=== PATIENT | female | born 1980 | race Caucasian/White ===

== ENCOUNTER 2019-11-04 07:29 | Emergency (ER) | payer BC, MEDICAID ==
[~2019-11-04] VITALS: Ht 160 cm; Wt 77.9 kg
--- NOTE | 2019-11-04 07:33 | NUR ---
PT IN LOBBY AND INFORMED ADMITTING STAFF THAT SHE NEEDS TO USE BATHROOM, PT GIVEN URINE CUP TO PROVIDE SAMPLE, WILL TRIAGE PT WHEN SHE IS DONE.
--- NOTE | 2019-11-04 08:06 | NUR ---
PT'S BELONGINGS DOCUMENTED AND SECURED IN [facility]ANCE [facility]. BELONGINGS CONSIST OF: BLACK SHOES, BLACK JACKET, SPORTS BRA, T-SHIRT, PANTS, BLACK HAT, AND UNDERWEAR. PT'S CELLPHONE AND WALLET WERE TAKEN HOME BY PT'S MOTHER.
[2019-11-04] MEDS ORDERED: ARIP2TAB37 PO (08:12)
[2019-11-04] MEDS ORDERED: ESCI10TA PO (08:12)
[2019-11-04] MEDS ORDERED: normal saline 1000ML IV soln IVB ONE (08:30)
[2019-11-04 08:48] LABS: CLARITY,URINE SLIGHTLY CLOUDY (Clear); COLOR,URINE YELLOW (Yellow); GLUCOSE, URINE NEGATIVE (Neg); KETONES,URINE TRACE mg/dl (Neg); LEUKOCYTE ESTERASE ,URINE NEGATIVE (Neg); NITRITES, URINE NEGATIVE (Neg); OCCULT BLOOD,URINE LARGE (Neg); PROTEIN,URINE 100 mg/dl (Neg); UROBILINOGEN,URINE 0.2 E.U/dL (0.2-1.0)
[2019-11-04 08:50] LABS: URINE HCG NEGATIVE (NEG)
[2019-11-04] MEDS ORDERED: magnesium oxide 400mg tablet PO ONE (08:50)
[2019-11-04] MEDS ORDERED: folic acid 1mg tablet PO ONE (08:50)
[2019-11-04] MEDS ORDERED: thiamine 100mg tablet PO ONE (08:50)
[2019-11-04 08:57] LABS: UA COLLECTION TYPE CLN CATCH MIDSTREAM
[2019-11-04 08:58] LABS: MUCUS STRANDS MODERATE /LPF (Neg); SQUAMOUS EPITHELIAL CELL,UR MANY /LPF (FEW)
[2019-11-04 09:00] LABS: BACTERIA,URINE 2+ /HPF (Neg); RBC,URINE 50-100 /HPF (0-2)
[2019-11-04 09:19] LABS: BASOPHILS # (AUTO) 0.1 X10'3 (0-0.2); BASOPHILS % (AUTO) 1.6 % (0-1); EOSINOPHILS % (AUTO) 0.9 % (0-6); HEMOGLOBIN 14.7 g/dl (12.0-16.0); LYMPHOCYTES # (AUTO) 1.5 X10'3 (1.1-4.8); MEAN CORPUSCULAR HEMOGLOBIN 33.8 PG (27.0-31.0); MEAN CORPUSCULAR HGB CONC 34.3 g/dL (33.0-36.5); MEAN CORPUSCULAR VOLUME 98.7 FL (78-98); MEAN PLATELET VOLUME 6.9 FL (7.4-10.4); MONOCYTES # (AUTO) 0.6 X10'3 (0-0.9); MONOCYTES % (AUTO) 14.5 % (2-12); NEUTROPHILS # (AUTO) 1.9 X10'3 (1.8-7.7); PLATELET COUNT 177 X10'3 (140-440); RED BLOOD COUNT 4.36 X10'6 (4.20-5.60); RED CELL DISTRIBUTION WIDTH 14.1 % (11.5-14.5)
[2019-11-04 09:35] LABS: ALANINE AMINOTRANSFERASE 36 U/L (12-78); ALBUMIN 3.8 G/DL (3.4-5.0); ALBUMIN/GLOBULIN RATIO 0.9 (1.1-1.5); ALKALINE PHOSPHATASE 75 IU/L (46-116); ANION GAP 13 (8-16); BILIRUBIN,TOTAL 0.4 MG/DL (0.1-1.0); BLOOD UREA NITROGEN 10 MG/DL (7-18); BUN/CREATININE RATIO 13.7 (6.6-38.0); CALCIUM 8.4 MG/DL (8.5-10.1); CHLORIDE 104 MMOL/L (99-107); CREATININE 0.73 MG/DL (0.40-0.90); GLUCOSE 101 MG/DL (70-104); SODIUM 142 MMOL/L (135-145); TOTAL CARBON DIOXIDE 25.5 MMOL/L (24-32); eGFR 90 ML/MIN
[2019-11-04 09:40] LABS: POTASSIUM 4.4 MMOL/L (3.5-5.1)
[2019-11-04 09:43] LABS: ETHANOL 0.244 GM/DL (0.0-0.010); LIPASE 253 U/L (73-393); MAGNESIUM 2.2 MG/DL (1.5-2.4)
[2019-11-04 09:44] LABS: ASPARTATE AMINO TRANSFERASE 91 U/L (10-37)
--- NOTE | 2019-11-04 10:07 | NUR ---
Patient's mother: Maria T, cell phone number [phone]
[2019-11-04] MEDS ORDERED: LORazepam 2 mg/ml vial IV ONE (10:15)
[2019-11-04 11:04] LABS: URINE AMPHETAMINE SCREEN NEGATIVE (Neg); URINE BARBITUATE SCREEN NEGATIVE (Neg); URINE BENZODIAZEPINES SCREEN NEGATIVE (Neg); URINE CANNABINOID SCREEN NEGATIVE (Neg); URINE COCAINE SCREEN NEGATIVE (Neg); URINE METHADONE SCREEN NEGATIVE (Neg); URINE OPIATE SCREEN NEGATIVE (Neg); URINE PHENCYCLIDINE SCREEN NEGATIVE (Neg)
[2019-11-04] MEDS ORDERED: chlordiazePOXIDE 25mg capsule PO ONE ×2 (11:20→18:15)
--- NOTE | 2019-11-04 12:00 | NUR ---
PACKET FAXED TO [facility]
--- NOTE | 2019-11-04 12:15 | NUR ---
Pt resting with eyes closed after Ativan given, states she feels tired; has been having insomnia. Less anxiety
[2019-11-04] MEDS: chlordiazePOXIDE 25mg capsule PO SCH ×3 (13:00→22:41)
[2019-11-04] MEDS: ESCITALOPRAM OXALATE 5 MG TABLET PO SCH (17:16)
[2019-11-04] MEDS: cloNIDine 0.1 MG/24 HOUR patch (7 day patch) TD STA ×2 (17:27→22:40)
[2019-11-04] MEDS ORDERED: CHLO25CA10 PO (17:27)
[2019-11-04] MEDS ORDERED: PROM12.512 PO (17:27)
--- NOTE | 2019-11-04 17:52 | NUR ---
Pt requesting more librium, visibly shaking. Given as per schedule. In depth conversation with patient re plan of care and use of librium . She states it does help.
--- NOTE | 2019-11-04 18:15 | NUR ---
The patient is laying in bed with Mom at bedside. Received report from No KRAFT. Assumed care of patient.
--- NOTE | 2019-11-04 21:16 | NUR ---
The patient is sleeping on her left side. RR unlabored. No s/s of distress.
[2019-11-04] MEDS ORDERED: cloNIDine 0.1 MG/24 HOUR patch (7 day patch) TD STA (22:24)
--- NOTE | 2019-11-04 22:54 | NUR ---
Patient is asleep in supine position. RR unlabored. No s/s of distress.
--- NOTE | 2019-11-05 01:51 | NUR ---
Patient is asleep on her right side. RR unlabored. No s/s of distress.
--- NOTE | 2019-11-05 03:42 | NUR ---
Patient is asleep on her left side. RR unlabored. No s/s of distress.
--- NOTE | 2019-11-05 05:07 | NUR ---
Patient is asleep on her right side. RR unlabored. No s/s of distress.
[2019-11-05 05:29] VITALS: BP 147/84
--- NOTE | 2019-11-05 07:59 | NUR ---
AWAKE AND SITTING UP IN BED WITH MOTHER VISITING. STATES FEELING SHAKY AT PRESENT.
[2019-11-05] MEDS ORDERED: ESCITALOPRAM OXALATE 5 MG TABLET PO SCH (08:00)
[2019-11-05] MEDS: ESCITALOPRAM OXALATE 5 MG TABLET PO SCH (08:25)
[2019-11-05] MEDS: chlordiazePOXIDE 25mg capsule PO SCH (08:25)
--- NOTE | 2019-11-05 11:38 | NUR ---
reviewed librium and phenergan prescription with pt, pt to fill at [facility], pt understands to follow up with [facility] as only 4 day supply, will have fior cheney call the hospital at [facility] to see if they are open this week and re-evaluate need for additional amount of librium prescription
[2019-11-05] MEDS ORDERED: chlordiazePOXIDE 25mg capsule PO ONE (11:55)
--- NOTE | 2019-11-05 12:30 | NUR ---
PATIENT IS PREPARING FOR DC HOME WITH MOTHER. PATIENT IS CONCERNED THAT HER CLINIC IS NOT OPENED UNTIL NEXT WEEK, FOR FOLLOW-UP APPOINTMENT AND WORRIED THAT SHE MAY NEED MORE LIBRIUM TO GET HER THROUGH ALCOHOL WITHDRAWALS. WILL DISCUSS WITH DR. PINA.
--- NOTE | 2019-11-05 12:55 | NUR ---
NURSE DISCUSSED PATIENT CONCERNS WITH DR. PINA. ER STATES THAT THIS AMOUNT OF LIBRIUM SHOULD ALLOW HER TO GET THROUGH WITHDRAWAL PERIOD. PATIENT INFORMED OF THIS WITH DC INFORMATION AND VERBALIZED UNDERSTANDING. PREPARING FOR DC.
== END 2019-11-05 13:15 | disposition home or self-care (01) ==
LOC: ER 07:30
DX: R45.851 Suicidal ideations (principal); R41.0 Disorientation, unspecified; F10.239 Alcohol dependence with withdrawal, unspecified; F10.229 Alcohol dependence with intoxication, unspecified; F41.9 Anxiety disorder, unspecified; F32.9 Major depressive disorder, single episode, unspecified; Z79.899 Other long term (current) drug therapy; Y90.0 Blood alcohol level of less than 20 mg/100 ml
CPT/HCPCS: 36415; 80053; 80305; 80320; 81001; 81025; 83690; 83735; 84443; 85025; 96361; 96374; 99284; J2060; J7030

== ENCOUNTER 2020-05-08 16:37 | Emergency (ER) | payer MEDICAID ==
[~2020-05-08] VITALS: Ht 162.6 cm; Wt 68.2 kg
[~2020-05-08 16:37] MED LIST: ARIP2TAB37 PO; CHLO25CA10 PO; ESCI10TA PO; PROM12.512 PO
[2020-05-08] MEDS ORDERED: normal saline 1000ml 1,000 ML IV ONE ×2 (16:55)
[2020-05-08 17:50] LABS: BASOPHILS # (AUTO) 0.1 X10'3 (0-0.2); EOSINOPHILS # (AUTO) 0.1 X10'3 (0-0.9); EOSINOPHILS % (AUTO) 0.7 % (0-6); HEMATOCRIT 42.6 % (35.0-45.0); HEMOGLOBIN 14.2 g/dl (12.0-16.0); LYMPHOCYTES # (AUTO) 2.2 X10'3 (1.1-4.8); LYMPHOCYTES % (AUTO) 16.6 % (21-51); MEAN CORPUSCULAR HEMOGLOBIN 31.2 PG (27.0-31.0); MEAN CORPUSCULAR HGB CONC 33.4 g/dL (33.0-36.5); MEAN CORPUSCULAR VOLUME 93.4 FL (78-98); MEAN PLATELET VOLUME 7.6 FL (7.4-10.4); MONOCYTES # (AUTO) 0.8 X10'3 (0-0.9); NEUTROPHILS # (AUTO) 9.9 X10'3 (1.8-7.7); NEUTROPHILS % (AUTO) 75.7 % (42-75); PLATELET COUNT 340 X10'3 (140-440); RED BLOOD COUNT 4.56 X10'6 (4.20-5.60); WHITE BLOOD COUNT 13.1 X10'3 (4.5-11.0)
[2020-05-08 17:53] LABS: ALANINE AMINOTRANSFERASE 21 U/L (12-78); ALBUMIN 4.3 G/DL (3.4-5.0); ALKALINE PHOSPHATASE 103 IU/L (46-116); ANION GAP 14 (8-16); ASPARTATE AMINO TRANSFERASE 19 U/L (10-37); BILIRUBIN,TOTAL 0.2 MG/DL (0.1-1.0); BLOOD UREA NITROGEN 20 MG/DL (7-18); CHLORIDE 105 MMOL/L (99-107); CREATININE 1.25 MG/DL (0.40-0.90); GLUCOSE 91 MG/DL (70-104); POTASSIUM 3.9 MMOL/L (3.5-5.1); SODIUM 142 MMOL/L (135-145); TOTAL PROTEIN 8.4 G/DL (6.4-8.2); eGFR 48 ML/MIN
[2020-05-08 18:05] LABS: CKMB RELATIVE INDEX 0.6 RATIO (0-2.5); CREATINE KINASE 149 U/L (26-192); ETHANOL 0.116 GM/DL (0.0-0.010)
--- NOTE | 2020-05-08 18:10 | NUR ---
visitor at bedside.call light within reach.
[2020-05-08 18:34] LABS: URINE HCG NEGATIVE (NEG)
[2020-05-08 18:36] LABS: CLARITY,URINE CLOUDY (Clear); COLOR,URINE YELLOW (Yellow); GLUCOSE, URINE NEGATIVE (Neg); KETONES,URINE TRACE mg/dl (Neg); LEUKOCYTE ESTERASE ,URINE MODERATE (Neg); NITRITES, URINE NEGATIVE (Neg); OCCULT BLOOD,URINE TRACE-LYSED (Neg); PH,URINE 5.5 (4.8-8.0); PROTEIN,URINE 30 mg/dl (Neg); UA COLLECTION TYPE CLN CATCH MIDSTREAM; UROBILINOGEN,URINE 0.2 E.U/dL (0.2-1.0)
[2020-05-08 18:47] LABS: URINE AMPHETAMINE SCREEN NEGATIVE (Neg); URINE BARBITUATE SCREEN NEGATIVE (Neg); URINE BENZODIAZEPINES SCREEN POSITIVE (Neg); URINE CANNABINOID SCREEN POSITIVE (Neg); URINE COCAINE SCREEN NEGATIVE (Neg); URINE METHADONE SCREEN NEGATIVE (Neg); URINE OPIATE SCREEN NEGATIVE (Neg); URINE PHENCYCLIDINE SCREEN NEGATIVE (Neg)
[2020-05-08 18:48] LABS: BACTERIA,URINE 2+ /HPF (Neg); RBC,URINE 0-2 /HPF (0-2); SQUAMOUS EPITHELIAL CELL,UR MANY /LPF (FEW)
[2020-05-08] MEDS ORDERED: cephalexin 500mg capsule PO STA (18:52)
[2020-05-08] MEDS ORDERED: CLON-528 PO (19:05)
[2020-05-08] MEDS ORDERED: OMEP40CA13 PO (19:05)
[2020-05-08] MEDS ORDERED: CLON0.1T PO (19:05)
[2020-05-08] MEDS ORDERED: NALT50TA PO (19:05)
[2020-05-08] MEDS ORDERED: ATOM40CA PO (19:05)
[2020-05-08] MEDS ORDERED: LEVO40CA PO (19:05)
[2020-05-08] MEDS ORDERED: cephalexin 250mg capsule PO ONE (20:00)
--- NOTE | 2020-05-08 20:48 | NUR ---
SPOKE WITH PT'S MOTHER REGARDING FITZIMA MED; MOTHER WILL DROP OFF MED BUT ALSO LET THE RN KNOW SHE JUST SWITCHED TO THIS MED FROM CELEXA 20MG. WILL INFORM ED MD.
--- NOTE | 2020-05-08 20:56 | NUR ---
SPOKE WITH ED MD VOGT AND WANTS TO KEEP PT ON FITZIMA MEDICATION- WILL CALL MOTHER AND ASK FOR HER TO DROP OFF BY TOMORROW MORNING.
--- NOTE | 2020-05-08 20:58 | NUR ---
PT'S FATHER WILL BE DROPPING OFF MEDS IN THE AM.
[2020-05-08] MEDS ORDERED: cloNIDine 0.1 mg tablet PO SCH (21:00)
--- NOTE | 2020-05-08 21:28 | NUR ---
PT TALKING WITH MOTHER VIA PHONE
[2020-05-08] MEDS: clonazePAM 0.5mg tablet PO PRN (22:01)
--- NOTE | 2020-05-08 22:03 | NUR ---
Patient brought over to overflow bed 24 from main ER. Patient was able to ambulate independently. Pt used the restroom then got into bed. Pt given PRN Clonopin.
--- NOTE | 2020-05-08 22:22 | NUR ---
Packet sent to [facility]
--- NOTE | 2020-05-08 23:30 | NUR ---
Pt appears to be resting comfortably in bed. No s/s of distress noted
--- NOTE | 2020-05-09 00:33 | NUR ---
Pt appears to be resting comfortably in bed. No s/s of distress noted
--- NOTE | 2020-05-09 00:40 | NUR ---
Patient is sleeping on her left s Addendum: 05/09/20 at 0040 by FINESSE side. In view from nursing station.
--- NOTE | 2020-05-09 00:46 | NUR ---
Recieved pt sleeping on her back, no distress or signs of withdrawal noted at this time. Will continue to monitor.
--- NOTE | 2020-05-09 03:10 | NUR ---
Pt sleeping, will continue to monitor.
--- NOTE | 2020-05-09 05:26 | NUR ---
Pt up to use restroom and inquire about the current time. Pt returned back to sleep.
[2020-05-09] MEDS: clonazePAM 0.5mg tablet PO PRN (05:41)
[2020-05-09 06:08] VITALS: BP 110/67
[2020-05-09 06:33] LABS: CLARITY,URINE SLIGHTLY CLOUDY (Clear); COLOR,URINE YELLOW (Yellow); GLUCOSE, URINE NEGATIVE (Neg); KETONES,URINE NEGATIVE (Neg); LEUKOCYTE ESTERASE ,URINE NEGATIVE (Neg); NITRITES, URINE NEGATIVE (Neg); OCCULT BLOOD,URINE NEGATIVE (Neg); PH,URINE 5.5 (4.8-8.0); PROTEIN,URINE NEGATIVE (Neg); UROBILINOGEN,URINE 0.2 E.U/dL (0.2-1.0)
[2020-05-09 06:40] LABS: UA COLLECTION TYPE NON-SPECIFIED
[2020-05-09 06:42] LABS: BACTERIA,URINE 1+ /HPF (Neg); MUCUS STRANDS FEW /LPF (Neg); RBC,URINE 0-2 /HPF (0-2); SQUAMOUS EPITHELIAL CELL,UR MANY /LPF (FEW); WBC CLUMPS,URINE FEW /HPF (NEGATIVE)
[2020-05-09] MEDS ORDERED: LORazepam 1 MG tablet PO ONE ×2 (06:50→15:05)
--- NOTE | 2020-05-09 06:50 | NUR ---
pt c/o anxiety, informed dr. osuna, please see new orders.
[2020-05-09] MEDS ORDERED: atomoxetine 40 MG capsule PO SCH (08:00)
[2020-05-09] MEDS ORDERED: naltrexone 50mg tablet PO SCH (08:00)
[2020-05-09] MEDS ORDERED: LEVOMILNACIPRAN 40 MG PO SCH (08:00)
[2020-05-09] MEDS ORDERED: pantoprazole 40mg Tablet.DR PO SCH (08:00)
--- NOTE | 2020-05-09 09:11 | NUR ---
ATIVAN NOT EFFECTIVE, INFORMED DR. GARCIA. PLEASE SEE NEW ORDERS.
[2020-05-09] MEDS ORDERED: haloperidol lactate 5mg/ml inj IM ONE (09:15)
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
--- NOTE | 2020-05-09 10:48 | NUR ---
pt resting inbed on back, rr of 15. no s/s of distress or pain. will continue to monitor.
[2020-05-09] MEDS ORDERED: chlordiazePOXIDE 25mg capsule PO ONE (15:20)
== END 2020-05-09 16:39 ==
LOC: ER 16:37
DX: N20.9 Urinary calculus, unspecified (principal); R45.851 Suicidal ideations; F41.9 Anxiety disorder, unspecified; F32.9 Major depressive disorder, single episode, unspecified; Z72.89 Other problems related to lifestyle; Z79.899 Other long term (current) drug therapy
CPT/HCPCS: 36415; 80053; 80305; 80320; 81001; 81025; 82550; 82553; 82948; 84443; 85025; 93005; 96372; 99285; J1630; J7030; 99284

== ENCOUNTER 2020-12-25 09:19 | Emergency (ER) | payer MEDICAID ==
[~2020-12-25] VITALS: Ht 160 cm; Wt 85.5 kg
[~2020-12-25 09:19] MED LIST changes: -ARIP2TAB37 PO; +ATOM40CA PO; -CHLO25CA10 PO; +CLON-528 PO; +CLON0.1T PO; -ESCI10TA PO; +LEVO40CA PO; +NALT50TA PO; +OMEP40CA13 PO; -PROM12.512 PO
[2020-12-25 09:42] VITALS: BP 133/92
[2020-12-25] MEDS ORDERED: chlordiazePOXIDE 25mg capsule PO ONE (11:00)
[2020-12-25] MEDS ORDERED: CLON-529 PO (11:12)
[2020-12-25] MEDS ORDERED: LOPE-190 PO (11:12)
[2020-12-25] MEDS ORDERED: ONDA4TAB6 PO (11:12)
[2020-12-25] MEDS ORDERED: CHLO25CA10 PO (11:12)
== END 2020-12-25 11:22 | disposition home or self-care (01) ==
LOC: ER 09:20
DX: Z02.89 Encounter for other administrative examinations (principal); F10.239 Alcohol dependence with withdrawal, unspecified; F41.9 Anxiety disorder, unspecified; F32.9 Major depressive disorder, single episode, unspecified; Z72.89 Other problems related to lifestyle; Z79.899 Other long term (current) drug therapy; Y90.9 Presence of alcohol in blood, level not specified
CPT/HCPCS: 99283

== ENCOUNTER 2021-03-24 06:59 | Emergency (ER) | payer MEDICAID ==
[~2021-03-24] VITALS: Ht 160 cm; Wt 82.5 kg
[~2021-03-24 06:59] MED LIST changes: +CHLO25CA10 PO; +CLON-529 PO; +LOPE-190 PO; +ONDA4TAB6 PO
[2021-03-24 07:05] VITALS: BP 147/94
[2021-03-24] MEDS ORDERED: CHLO25CA10 PO (07:20)
== END 2021-03-24 07:32 | disposition home or self-care (01) ==
LOC: ER 06:59
DX: F32.9 Major depressive disorder, single episode, unspecified (principal); F10.129 Alcohol abuse with intoxication, unspecified; F41.9 Anxiety disorder, unspecified; Z79.899 Other long term (current) drug therapy; Y90.0 Blood alcohol level of less than 20 mg/100 ml
CPT/HCPCS: 99283

== ENCOUNTER 2021-04-17 11:39 | Inpatient (IN) | payer MEDICAID ==
[~2021-04-17] VITALS: Ht 162.6 cm; Wt 72.7 kg
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
[2021-04-17 13:10] LABS: BASOPHILS # (AUTO) 0.1 X10'3 (0-0.2); BASOPHILS % (AUTO) 0.5 % (0-1); EOSINOPHILS # (AUTO) 0.2 X10'3 (0-0.9); EOSINOPHILS % (AUTO) 1.1 % (0-6); HEMATOCRIT 47.4 % (35.0-45.0); HEMOGLOBIN 15.5 g/dl (12.0-16.0); LYMPHOCYTES # (AUTO) 2.7 X10'3 (1.1-4.8); LYMPHOCYTES % (AUTO) 18.8 % (21-51); MEAN CORPUSCULAR HEMOGLOBIN 30.2 PG (27.0-31.0); MEAN CORPUSCULAR HGB CONC 32.6 g/dL (33.0-36.5); MEAN CORPUSCULAR VOLUME 92.6 FL (78-98); MEAN PLATELET VOLUME 8.4 FL (7.4-10.4); MONOCYTES # (AUTO) 0.6 X10'3 (0-0.9); MONOCYTES % (AUTO) 4.5 % (2-12); NEUTROPHILS # (AUTO) 10.7 X10'3 (1.8-7.7); NEUTROPHILS % (AUTO) 75.1 % (42-75); PLATELET COUNT 276 X10'3 (140-440); RED BLOOD COUNT 5.12 X10'6 (4.20-5.60); RED CELL DISTRIBUTION WIDTH 13.7 % (11.5-14.5); WHITE BLOOD COUNT 14.3 X10'3 (4.5-11.0)
[2021-04-17] MEDS ORDERED: normal saline 1000ml 1,000 ML IVB ONE (13:30)
--- NOTE | 2021-04-17 13:30 | NUR ---
ASSUMED CARE OF PT FROM ANGELINA KRAFT, FIRST CONTACT WITH PT SHE WAS STANDING BY BED, IV FELL OUT, PT WAS PALE, UNSTEADY ON FEET, PT NEEDS CONSTANT REDIRECTION, ASSISTED PT BACK TO BED,FOUND 2 ORANGE PILL FRAGMENTS IN PELVIC AREA, CLEANED PT UP, PUT HER IN A NEW GOWN, DR MOJICA AWARE PT HAS NO IV
[2021-04-17 13:40] LABS: ALANINE AMINOTRANSFERASE 24 U/L (12-78); ALBUMIN 4.4 G/DL (3.4-5.0); ALKALINE PHOSPHATASE 179 IU/L (46-116); ANION GAP 31 (8-16); ASPARTATE AMINO TRANSFERASE 31 U/L (10-37); BILIRUBIN,TOTAL 0.7 MG/DL (0.1-1.0); BLOOD UREA NITROGEN 21 MG/DL (7-18); BUN/CREATININE RATIO 9.5 (6.6-38.0); CALCIUM 9.7 MG/DL (8.5-10.1); CHLORIDE 97 MMOL/L (99-107); CREATININE 2.22 MG/DL (0.40-0.90); ETHANOL 0.146 GM/DL (0.0-0.010); GLUCOSE 146 MG/DL (70-104); POTASSIUM 3.1 MMOL/L (3.5-5.1); SODIUM 138 MMOL/L (135-145); eGFR 25 ML/MIN
[2021-04-17 13:45] LABS: TOTAL CARBON DIOXIDE 10.3 MMOL/L (24-32)
[2021-04-17 13:53] LABS: ACETAMINOPHEN < 2.0 UG/ML (10-30)
[2021-04-17 14:00] LABS: ABG OXYGEN SATURATION 96.7 % (94-97); ABG PO2 (T) 94.5 mmHg (75.0-100.0); ALLEN'S TEST POSITIVE; FCOHb 0.7 % (0.0-3.9); FMetHb 0.2 % (0.0-1.5); FO2Hb 95.8 % (94-97); TOTAL HEMOGLOBIN 15.6 G/dl (12.0-16.0)
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
--- NOTE | 2021-04-17 14:28 | NUR ---
ANOTHER RN AT BEDSIDE TO TRY FOR IV,
[2021-04-17] MEDS ORDERED: normal saline 1000ml 1,000 ML IV ONE (14:30)
[2021-04-17 14:41] LABS: HEMOGLOBIN A1C 5.5 % (4.5-6.2)
--- NOTE | 2021-04-17 15:00 | NUR ---
pt ripped IV out again, trying to leave ER, pt is very uncooperative, yelling very loudly, will not follow commands, security paged, pt assisted back to bed, 4 points restraints placed without complications, gave pt 2 glasses of water to drink at her request, pt continues to yell loudly, Dr Valdivia aware pt is very uncooperative and that she is a difficult IV start
--- NOTE | 2021-04-17 15:00 | NUR ---
pt pulled IV to left hand out, cannula intact
[2021-04-17 15:04] LABS: OSMOLALITY 330 MOSM/K (280-300)
--- NOTE | 2021-04-17 15:05 | NUR ---
see vital signs on restraint form
--- NOTE | 2021-04-17 15:42 | NUR ---
another RN to attempt IV access now. Pt remains uncooperative, restraints remain on. Pt has contracted for safety several times, she knows she needs to stay in bed and not pull IV out,
--- NOTE | 2021-04-17 15:47 | NUR ---
gave pt ice water to drink, hortencia well, no n/v, mouth and lips are very dry
--- NOTE | 2021-04-17 16:08 | NUR ---
pt is receiving 2nd liter NS, gave her 8 oz of water to drink
[2021-04-17] MEDS ORDERED: METH20CP12 PO (16:11)
[2021-04-17] MEDS ORDERED: ZOLP5TAB8 PO (16:11)
[2021-04-17] MEDS ORDERED: L-NO1TBD14 PO (16:11)
[2021-04-17] MEDS ORDERED: OMEP-50 PO (16:11)
[2021-04-17] MEDS ORDERED: CLON0.2T PO (16:11)
[2021-04-17] MEDS ORDERED: GABA-530 PO (16:11)
--- NOTE | 2021-04-17 16:35 | NUR ---
IV to rt hand infiltrated, poison control called and asked for CK, repeat blood alcohol, serum os, Dr Valdivia aware, pt is released from restraints, contracts for safety and to cooperate with staff, used commode, up at without assist, steady on feet,
--- NOTE | 2021-04-17 16:52 | NUR ---
Dr Valdivia gave verbal order to give pt water to drink, repeat labs requested by poison control, chemical laboratory scientist at bedside,
[2021-04-17 16:55] LABS: CLARITY,URINE SLIGHTLY CLOUDY (Clear); COLOR,URINE YELLOW (Yellow); GLUCOSE, URINE NEGATIVE (Neg); KETONES,URINE TRACE mg/dl (Neg); LEUKOCYTE ESTERASE ,URINE NEGATIVE (Neg); NITRITES, URINE NEGATIVE (Neg); OCCULT BLOOD,URINE LARGE (Neg); PH,URINE 5.5 (4.8-8.0); PROTEIN,URINE >=300 mg/dl (Neg); UROBILINOGEN,URINE 0.2 E.U/dL (0.2-1.0)
[2021-04-17 16:56] LABS: URINE HCG NEGATIVE (NEG)
[2021-04-17 16:59] LABS: UA COLLECTION TYPE CLN CATCH MIDSTREAM
[2021-04-17 17:00] LABS: BACTERIA,URINE NONE SEEN /HPF (Neg); COARSE GRANULAR CAST 0-3 /LPF (NEGATIVE); MUCUS STRANDS FEW /LPF (Neg); RBC,URINE 0-2 /HPF (0-2); SQUAMOUS EPITHELIAL CELL,UR FEW /LPF (FEW); WBC,URINE 0-4 /HPF (0-4)
--- NOTE | 2021-04-17 17:00 | NUR ---
pt is cooperative, gave her large pitcher of water to drink, and phone to call her mom
[2021-04-17 17:10] LABS: URINE AMPHETAMINE SCREEN POSITIVE (Neg); URINE BARBITUATE SCREEN NEGATIVE (Neg); URINE BENZODIAZEPINES SCREEN POSITIVE (Neg); URINE CANNABINOID SCREEN POSITIVE (Neg); URINE COCAINE SCREEN NEGATIVE (Neg); URINE METHADONE SCREEN NEGATIVE (Neg); URINE OPIATE SCREEN POSITIVE (Neg); URINE PHENCYCLIDINE SCREEN NEGATIVE (Neg)
[2021-04-17 17:17] LABS: OSMOLALITY 298 MOSM/K (280-300)
--- NOTE | 2021-04-17 17:27 | NUR ---
pt is resting quietly on gurney, resp even and unlabored,
[2021-04-17 17:28] LABS: ALANINE AMINOTRANSFERASE 24 U/L (12-78); ALKALINE PHOSPHATASE 162 IU/L (46-116); ANION GAP 20 (8-16); ASPARTATE AMINO TRANSFERASE 47 U/L (10-37); BILIRUBIN,TOTAL 0.6 MG/DL (0.1-1.0); BLOOD UREA NITROGEN 21 MG/DL (7-18); BUN/CREATININE RATIO 12.5 (6.6-38.0); CALCIUM 8.6 MG/DL (8.5-10.1); CHLORIDE 96 MMOL/L (99-107); CREATININE 1.68 MG/DL (0.40-0.90); GLUCOSE 130 MG/DL (70-104); POTASSIUM 3.7 MMOL/L (3.5-5.1); SODIUM 131 MMOL/L (135-145); TOTAL CARBON DIOXIDE 15.2 MMOL/L (24-32); TOTAL PROTEIN 8.2 G/DL (6.4-8.2); eGFR 34 ML/MIN
[2021-04-17 17:37] LABS: ETHANOL 0.032 GM/DL (0.0-0.010)
[2021-04-17 17:38] LABS: CREATINE KINASE 1779 U/L (26-192)
--- NOTE | 2021-04-17 17:54 | NUR ---
pt up to bedside commode without assist, emptied hat 300ml of dark yellow urine, pt has drank 16 oz of water
--- NOTE | 2021-04-17 18:28 | NUR ---
hospitalist at bedside to evaluate pt
[2021-04-17] MEDS ORDERED: ondansetron/PF 4mg/2ml inj IV PRN (18:40)
[2021-04-17] MEDS ORDERED: magnesium hydroxide 30ml (MOM) UD suspension PO PRN (18:40)
[2021-04-17] MEDS ORDERED: cloNIDine 0.1 mg tablet PO PRN (18:40)
[2021-04-17] MEDS ORDERED: dicyclomine 10 MG capsule PO PRN (18:40)
[2021-04-17] MEDS ORDERED: dextrose 50%-water 50ml dispensing syringe IV PRN (18:40)
[2021-04-17] MEDS ORDERED: loperamide 2mg capsule PO PRN (18:40)
[2021-04-17] MEDS ORDERED: haloperidol lactate 5mg/ml inj IM PRN (18:40)
[2021-04-17] MEDS ORDERED: morphine 2 MG/ML inj. syringe IV PRN ×2 (18:40)
[2021-04-17] MEDS ORDERED: mag hydrox/Alum hydrox/simeth 30ml oral suspension PO PRN ×2 (18:40)
[2021-04-17] MEDS ORDERED: thiamine 100mg/ml 2ml inj. IV ONE (18:40)
[2021-04-17] MEDS ORDERED: acetaminophen 325mg tablet PO PRN ×2 (18:40)
[2021-04-17 19:27] LABS: MAGNESIUM 2.3 MG/DL (1.5-2.4); PHOSPHORUS 3.2 MG/DL (2.3-4.5)
--- NOTE | 2021-04-17 20:30 | NUR ---
Patient requesting medicaiton for her nerves at this time. States she feels disoriented and anxious and would like to rest. Ativan given per patient request. She is resting, even and unlabored respirations, has been very cooperative.
[2021-04-17 20:37] LABS: PARTIAL THROMBOPLASTIN TIME 26 SECONDS (22-32)
[2021-04-17] MEDS: normal saline 1000ml 1,000 ML IV SCH (20:51)
[2021-04-17] MEDS: LORazepam 2 mg/ml vial IV PRN (20:51)
--- NOTE | 2021-04-18 | NUR ---
Head of bed adjusted for patient comfort per patient request. No further needs voiced at this time. Even and unlabored respirations. IV fluids infusing easily.
--- NOTE | 2021-04-18 03:30 | NUR ---
Patient has been repositioning herself independently. Requesting more ativan as she is starting to feel anxious, also stating "the kid is hiding in the box" while referring to the bedside commode. Patient states sometimes "my dreams feel so real they freak me out". No further needs voiced at this time. IV fluids infusing easily.
[2021-04-18] MEDS: LORazepam 2 mg/ml vial IV PRN ×3 (04:07→06:06)
--- NOTE | 2021-04-18 05:08 | NUR ---
Patient noted to have sinus tachycardia at 0456. Patient has been running in the 40's sinus bradycardia. EKG done showing prolongued QT interval. DR Dumont called and notified. Also mentioned how patient is having some hallucinations. No further orders noted at this time.
[2021-04-18] MEDS: normal saline 1000ml 1,000 ML IV SCH ×2 (05:16→14:40)
[2021-04-18] MEDS: haloperidol 5mg tablet PO PRN (05:55)
--- NOTE | 2021-04-18 06:05 | NUR ---
Patient having increasing confusion stating "I need my purse for my hair appointment- isn't this the salon where you're washing my hair?" Patient also became tearful stating she wants her mother. Given PO Haldol- patient swallowed without difficulty but continues to be restless.
[2021-04-18 06:26] LABS: ALANINE AMINOTRANSFERASE 25 U/L (12-78); ALBUMIN 3.6 G/DL (3.4-5.0); ALKALINE PHOSPHATASE 140 IU/L (46-116); ANION GAP 15 (8-16); ASPARTATE AMINO TRANSFERASE 46 U/L (10-37); BILIRUBIN,TOTAL 1.1 MG/DL (0.1-1.0); BLOOD UREA NITROGEN 19 MG/DL (7-18); CALCIUM 8.3 MG/DL (8.5-10.1); CHLORIDE 100 MMOL/L (99-107); GLUCOSE 122 MG/DL (70-104); POTASSIUM 3.5 MMOL/L (3.5-5.1); SODIUM 133 MMOL/L (135-145); TOTAL CARBON DIOXIDE 18.5 MMOL/L (24-32); TOTAL PROTEIN 7.2 G/DL (6.4-8.2); eGFR 62 ML/MIN
[2021-04-18] MEDS ORDERED: haloperidol lactate 5mg/ml inj IM ONE (07:05)
[2021-04-18] MEDS ORDERED: diphenhydrAMINE 50 mg/ml inj IM ONE (07:05)
[2021-04-18] MEDS ORDERED: LORazepam 2 mg/ml vial IM ONE (07:05)
--- NOTE | 2021-04-18 07:23 | NUR ---
Pt continues to be aggitated and trying to get out of bed. Sitter at bedside attempting to redirect patient. Pt is not easily directable. Dr. Dillard evaluated patient and ordered medications that have been administered. Pt requested new pad and underwear which were provided. Pt was cooperative with medication administration.
--- NOTE | 2021-04-18 09:48 | NUR ---
Pt pulled out IV. Attempted to place another IV, pt is difficult stick. Pt has pulled out multiple IVs. Call in to Dr. Madrigal for direction.
--- NOTE | 2021-04-18 10:04 | NUR ---
Spoke with Dr. Madrigal. No need to put new IV in at this time. He was informed that Pt was placed in restraints of upper extremities for pulling at lines. Sitter at bedside.
[2021-04-18 10:15] LABS: BASOPHILS % (AUTO) 0.4 % (0-1); EOSINOPHILS # (AUTO) 0.1 X10'3 (0-0.9); EOSINOPHILS % (AUTO) 0.8 % (0-6); HEMATOCRIT 36.7 % (35.0-45.0); HEMOGLOBIN 12.3 g/dl (12.0-16.0); LYMPHOCYTES # (AUTO) 1.9 X10'3 (1.1-4.8); LYMPHOCYTES % (AUTO) 17.3 % (21-51); MEAN CORPUSCULAR HEMOGLOBIN 30.6 PG (27.0-31.0); MEAN CORPUSCULAR HGB CONC 33.6 g/dL (33.0-36.5); MEAN CORPUSCULAR VOLUME 90.9 FL (78-98); MEAN PLATELET VOLUME 8.6 FL (7.4-10.4); MONOCYTES # (AUTO) 0.5 X10'3 (0-0.9); NEUTROPHILS # (AUTO) 8.3 X10'3 (1.8-7.7); NEUTROPHILS % (AUTO) 76.5 % (42-75); PLATELET COUNT 173 X10'3 (140-440); RED BLOOD COUNT 4.03 X10'6 (4.20-5.60); RED CELL DISTRIBUTION WIDTH 13.8 % (11.5-14.5); WHITE BLOOD COUNT 10.8 X10'3 (4.5-11.0)
[2021-04-18 10:28] LABS: CREATINE KINASE 1288 U/L (26-192)
[2021-04-18] MEDS: folic acid 1mg tablet PO SCH (10:42)
[2021-04-18] MEDS: multivitamins, therapeutics tablet PO SCH (10:42)
[2021-04-18] MEDS: thiamine 100mg tablet PO SCH (10:42)
--- NOTE | 2021-04-18 11:07 | NUR ---
PT OVERHEARD MAKING THREAT TO SITTER, "IM GOING TO GO TO YOUR HOUSE AND HURT YOU." PT THEN WORKED HER WAY OUT OF HER LT SOFT WRIST RESTRAINTS. PT WAS PLACED BACK IN LT SOFT WRIST RESTRAINT
--- NOTE | 2021-04-18 11:07 | NUR ---
Spoke with Hanh from poison control. Labs improving and VSS. Need to attempt to determine baseline mental status. No new orders or s/s to watch for.
--- NOTE | 2021-04-18 11:17 | NUR ---
PT WAS ABLE TO GET OUT OF SOFT WRIST RESTRAINTS AND ATTEMPTED TO LEAVE. SECURITY ARRIVED AT BEDSIDE, APPLIED HARD WRIST RESTRAINTS TO PT PER DR VOGT. MEDICATION ORDERS PENDING
[2021-04-18] MEDS ORDERED: ketamine 50 mg/ml 10ml vial IM ONE (11:20)
--- NOTE | 2021-04-18 11:43 | NUR ---
DR TELLEZ CALLED REGARDING PT'S BEHAVIOR. NOTIFIED THAT SHE HAD GOTTEN OUT OF HER SOFT RESTRAINTS AND GOT AN EMERGENCY ORDER FOR HARD WRIST RESTRAINTS FROM DR VOGT. DR VOGT ALSO PUT IN AN ORDER FOR KETAMINE 40 MG IM. PT'S RN WAS NOT COMFORTABLE WITH THE ORDER AND REQUESTED THAT DR TELLEZ BE NOTIFIED. DR TELLEZ DID NOT WANT KETAMINE TO BE GIVEN AND ORDER WAS NON-ADMINISTERED. RECEIVED A TELEPHONE ORDER FROM DR TELLEZ FOR GEODON 10 MG IM. PT'S RN NOTIFIED OF DR TELLEZ.
[2021-04-18] MEDS ORDERED: ziprasidone IM 20mg inj **IM only IM ONE (11:50)
[2021-04-19] MEDS: normal saline 1000ml 1,000 ML IV SCH ×2 (00:40→10:40)
[2021-04-19] MEDS: haloperidol 5mg tablet PO PRN (03:21)
--- NOTE | 2021-04-19 05:02 | NUR ---
CMP drawn but with difficult access and quantity insufficient. 2nd RN attempted access unsucessfully. Nena in lab will send special shopper ~ 0800 for draw.
[2021-04-19] MEDS: folic acid 1mg tablet PO SCH ×2 (08:00→08:10)
[2021-04-19] MEDS: multivitamins, therapeutics tablet PO SCH ×2 (08:00→08:10)
[2021-04-19] MEDS: thiamine 100mg tablet PO SCH ×2 (08:00→08:10)
[2021-04-19] MEDS ORDERED: LORazepam 1 MG tablet PO PRN ×2 (08:05→18:40)
[2021-04-19 09:20] LABS: BASOPHILS % (AUTO) 0.4 % (0-1); EOSINOPHILS # (AUTO) 0.1 X10'3 (0-0.9); EOSINOPHILS % (AUTO) 2.1 % (0-6); HEMATOCRIT 37.7 % (35.0-45.0); HEMOGLOBIN 12.8 g/dl (12.0-16.0); LYMPHOCYTES # (AUTO) 1.6 X10'3 (1.1-4.8); LYMPHOCYTES % (AUTO) 25.6 % (21-51); MEAN CORPUSCULAR HEMOGLOBIN 30.7 PG (27.0-31.0); MEAN CORPUSCULAR HGB CONC 33.9 g/dL (33.0-36.5); MEAN CORPUSCULAR VOLUME 90.6 FL (78-98); MEAN PLATELET VOLUME 8.7 FL (7.4-10.4); MONOCYTES # (AUTO) 0.4 X10'3 (0-0.9); MONOCYTES % (AUTO) 6.3 % (2-12); NEUTROPHILS # (AUTO) 4.2 X10'3 (1.8-7.7); NEUTROPHILS % (AUTO) 65.6 % (42-75); PLATELET COUNT 154 X10'3 (140-440); RED BLOOD COUNT 4.17 X10'6 (4.20-5.60); WHITE BLOOD COUNT 6.4 X10'3 (4.5-11.0)
[2021-04-19 09:33] LABS: ALANINE AMINOTRANSFERASE 23 U/L (12-78); ALBUMIN 3.3 G/DL (3.4-5.0); ALBUMIN/GLOBULIN RATIO 0.8 (1.1-1.5); ALKALINE PHOSPHATASE 133 IU/L (46-116); ANION GAP 12 (8-16); ASPARTATE AMINO TRANSFERASE 40 U/L (10-37); BILIRUBIN,TOTAL 0.8 MG/DL (0.1-1.0); BLOOD UREA NITROGEN 11 MG/DL (7-18); CALCIUM 8.6 MG/DL (8.5-10.1); CHLORIDE 102 MMOL/L (99-107); CREATININE 0.92 MG/DL (0.40-0.90); GLUCOSE 105 MG/DL (70-104); POTASSIUM 3.4 MMOL/L (3.5-5.1); SODIUM 137 MMOL/L (135-145); TOTAL CARBON DIOXIDE 22.9 MMOL/L (24-32); TOTAL PROTEIN 7.5 G/DL (6.4-8.2); eGFR 68 ML/MIN
--- NOTE | 2021-04-19 11:25 | NUR ---
Patient up to restroom at this time. Ambulated back to room safely.
[2021-04-19] MEDS ORDERED: LORA-269 PO (11:37)
[2021-04-19 13:08] VITALS: BP 145/60
[2021-04-19] MEDS ORDERED: LORazepam 2 mg/ml vial IV PRN (18:40)
[2021-04-21] MEDS ORDERED: LORazepam 2 mg/ml vial IV PRN (18:40)
[2021-04-21] MEDS ORDERED: LORazepam 1 MG tablet PO PRN (18:40)
== END 2021-04-19 17:30 | disposition home or self-care (01) | DRG 351 ==
LOC: ER 11:39 → ED HOLD 18:38
PROVIDERS: ADMIT Internal Medicine; ATTEND Internal Medicine
DX: M62.82 Rhabdomyolysis (principal); N17.9 Acute kidney failure, unspecified; E87.4 Mixed disorder of acid-base balance; E86.0 Dehydration; F10.220 Alcohol dependence with intoxication, uncomplicated; F10.239 Alcohol dependence with withdrawal, unspecified; F11.10 Opioid abuse, uncomplicated; F12.10 Cannabis abuse, uncomplicated; F41.9 Anxiety disorder, unspecified; F32.9 Major depressive disorder, single episode, unspecified; Z20.822 Contact with and (suspected) exposure to COVID-19; Z79.899 Other long term (current) drug therapy
CPT/HCPCS: 36415; 36600; 71045; 80053; 80305; 80320; 80329; 81001; 81025; 82550; 82803; 83036; 83605; 83735; 83930; 84100; 84145; 84439; 84443; 85018; 85025; 85610; 85730; 87040; 87635; 93005; 96360; 96361; 99285; G0378; J1200; J1630; J2060; J3411; J3486; J7030

== ENCOUNTER 2021-06-14 08:34 | Inpatient (IN) | payer MEDICAID ==
[~2021-06-14] VITALS: Ht 160 cm; Wt 72.7 kg
[~2021-06-14 08:34] MED LIST changes: -ATOM40CA PO; -CHLO25CA10 PO; -CLON-528 PO; -CLON-529 PO; -CLON0.1T PO; +CLON0.2T PO; +GABA-530 PO; +L-NO1TBD14 PO; -LOPE-190 PO; +LORA-269 PO; +METH20CP12 PO; -NALT50TA PO; +OMEP-50 PO; -OMEP40CA13 PO; -ONDA4TAB6 PO; +ZOLP5TAB8 PO
[2021-06-14 09:52] LABS: BASOPHILS % (AUTO) 0.1 % (0-1); EOSINOPHILS % (AUTO) 0.1 % (0-6); HEMATOCRIT 48.9 % (35.0-45.0); HEMOGLOBIN 16.4 g/dl (12.0-16.0); LYMPHOCYTES # (AUTO) 1.2 X10'3 (1.1-4.8); LYMPHOCYTES % (AUTO) 8.4 % (21-51); MEAN CORPUSCULAR HEMOGLOBIN 29.9 PG (27.0-31.0); MEAN CORPUSCULAR HGB CONC 33.6 g/dL (33.0-36.5); MEAN CORPUSCULAR VOLUME 88.9 FL (78-98); MEAN PLATELET VOLUME 9.4 FL (7.4-10.4); MONOCYTES # (AUTO) 0.8 X10'3 (0-0.9); MONOCYTES % (AUTO) 5.3 % (2-12); NEUTROPHILS # (AUTO) 12.2 X10'3 (1.8-7.7); NEUTROPHILS % (AUTO) 86.1 % (42-75); PLATELET COUNT 154 X10'3 (140-440); WHITE BLOOD COUNT 14.2 X10'3 (4.5-11.0)
[2021-06-14 10:13] LABS: ALANINE AMINOTRANSFERASE 50 U/L (12-78); ALBUMIN 3.9 G/DL (3.4-5.0); ALBUMIN/GLOBULIN RATIO 0.9 (1.1-1.5); ALKALINE PHOSPHATASE 130 IU/L (46-116); ANION GAP 26 (8-16); ASPARTATE AMINO TRANSFERASE 140 U/L (10-37); BILIRUBIN,TOTAL 0.9 MG/DL (0.1-1.0); BLOOD UREA NITROGEN 20 MG/DL (7-18); BUN/CREATININE RATIO 19.6 (6.6-38.0); CALCIUM 8.4 MG/DL (8.5-10.1); CHLORIDE 84 MMOL/L (99-107); CREATININE 1.02 MG/DL (0.40-0.90); GLUCOSE 169 MG/DL (70-104); SODIUM 132 MMOL/L (135-145); TOTAL CARBON DIOXIDE 22.1 MMOL/L (24-32); TOTAL PROTEIN 8.4 G/DL (6.4-8.2); eGFR 61 ML/MIN
[2021-06-14 10:14] LABS: POTASSIUM 2.8 MMOL/L (3.5-5.1)
[2021-06-14 10:33] LABS: ETHANOL 0.407 GM/DL (0.0-0.010)
[2021-06-14 10:39] LABS: ACETAMINOPHEN < 2.0 UG/ML (10-30)
[2021-06-14] MEDS ORDERED: potassium Cl 20 mEq SR tablet PO STA (12:19)
[2021-06-14] MEDS ORDERED: magnesium 2GM in 50ml NS 50 ML IV ONE (12:20)
[2021-06-14] MEDS ORDERED: normal saline 1000ml 1,000 ML IV ONE ×2 (12:20)
[2021-06-14 12:49] LABS: CLARITY,URINE CLOUDY (Clear); GLUCOSE, URINE NEGATIVE (Neg); KETONES,URINE 40 mg/dl (Neg); LEUKOCYTE ESTERASE ,URINE SMALL (Neg); NITRITES, URINE NEGATIVE (Neg); OCCULT BLOOD,URINE SMALL (Neg); PROTEIN,URINE >=300 mg/dl (Neg); URINE AMPHETAMINE SCREEN NEGATIVE (Neg); URINE BARBITUATE SCREEN NEGATIVE (Neg); URINE BENZODIAZEPINES SCREEN NEGATIVE (Neg); URINE CANNABINOID SCREEN POSITIVE (Neg); URINE COCAINE SCREEN NEGATIVE (Neg); URINE METHADONE SCREEN NEGATIVE (Neg); URINE OPIATE SCREEN NEGATIVE (Neg); URINE PHENCYCLIDINE SCREEN NEGATIVE (Neg)
[2021-06-14 12:52] LABS: COLOR,URINE DARK YELLOW (Yellow); UA COLLECTION TYPE CLN CATCH MIDSTREAM; URINE HCG NEGATIVE (NEG)
[2021-06-14 12:56] LABS: BACTERIA,URINE 4+ /HPF (Neg); MUCUS STRANDS MANY /LPF (Neg); RENAL CELLS, URINE FEW /HPF; SQUAMOUS EPITHELIAL CELL,UR MANY /LPF (FEW); WBC,URINE 0-4 /HPF (0-4)
[2021-06-14 12:57] LABS: HYALINE CASTS >30 /LPF (NEGATIVE); TRANSITIONAL EPI CELLS,URINE FEW /HPF
[2021-06-14] MEDS: dextrose 5%-normal saline 1,000 ML IV SCH ×2 (13:20→15:29)
[2021-06-14 15:11] LABS: ALBUMIN 3.3 G/DL (3.4-5.0); ANION GAP 18 (8-16); BLOOD UREA NITROGEN 20 MG/DL (7-18); BUN/CREATININE RATIO 22.7 (6.6-38.0); CALCIUM 7.6 MG/DL (8.5-10.1); CHLORIDE 84 MMOL/L (99-107); CREATININE 0.88 MG/DL (0.40-0.90); GLUCOSE 133 MG/DL (70-104); POTASSIUM 3.2 MMOL/L (3.5-5.1); SODIUM 125 MMOL/L (135-145); TOTAL CARBON DIOXIDE 23.5 MMOL/L (24-32); eGFR 72 ML/MIN
[2021-06-14] MEDS ORDERED: thiamine 100mg/ml 2ml inj. IV ONE ×2 (15:35→16:35)
[2021-06-14] MEDS ORDERED: LORazepam 2 mg/ml vial IV ONE (16:15)
[2021-06-14] MEDS ORDERED: dextrose 50%-water 50ml dispensing syringe IV PRN (16:35)
[2021-06-14] MEDS ORDERED: mag hydrox/Alum hydrox/simeth 30ml oral suspension PO PRN (16:35)
[2021-06-14] MEDS ORDERED: haloperidol lactate 5mg/ml inj IM PRN (16:35)
[2021-06-14] MEDS ORDERED: magnesium hydroxide 30ml (MOM) UD suspension PO PRN (16:35)
[2021-06-14] MEDS ORDERED: ondansetron/PF 4mg/2ml inj IV PRN (16:35)
[2021-06-14] MEDS: sodium bicarbonate (8.4%) inj. 100 MEQ in sodium chloride 0.45% 1,000 ML IV SCH (17:59)
[2021-06-14] MEDS: LORazepam 2 mg/ml vial IV PRN ×2 (19:53→22:34)
[2021-06-14] MEDS: cloNIDine 0.1 mg tablet PO SCH (20:23)
[2021-06-14] MEDS: heparin, porcine 5000 units/ml vial SQ SCH (20:23)
[2021-06-14] MEDS: gabapentin 100mg capsule PO SCH (20:23)
[2021-06-14] MEDS: zolpidem 5mg tablet PO SCH (21:00)
--- NOTE | 2021-06-14 22:00 | NUR ---
Patient in room PCU 3014. I have received report from afshan KRAFT by telephone from ER and had the opportunity to ask questions and assume patient care once on the unit.
[2021-06-14] MEDS ORDERED: potassium Cl 40MEQ/1/2NS 520ml 520 ML IV PRN (23:15)
--- NOTE | 2021-06-15 | NUR ---
Problems reprioritized. Patient report given, questions answered & plan of care reviewed with []. Addendum: 06/15/21 at 0451 by Tiffani Faye RN ERRROR NOTE
[2021-06-15 01:30] VITALS: BP 128/64
[2021-06-15] MEDS: LORazepam 2 mg/ml vial IV PRN ×8 (01:43→22:47)
[2021-06-15] MEDS: potassium Cl 20 mEq SR tablet PO PRN ×4 (01:45→20:21)
[2021-06-15] MEDS: sodium bicarbonate (8.4%) inj. 100 MEQ in sodium chloride 0.45% 1,000 ML IV SCH (04:32)
[2021-06-15 06:00] VITALS: BP 121/63
--- NOTE | 2021-06-15 06:10 | NUR ---
Patient in room PCU 3014. I have received report from gabby Narayan and had the opportunity to ask questions and assume patient care.
--- NOTE | 2021-06-15 07:03 | NUR ---
Problems reprioritized. Patient report given, questions answered & plan of care reviewed with Reagan KRAFT.
[2021-06-15] MEDS: gabapentin 100mg capsule PO SCH ×3 (07:56→20:20)
[2021-06-15] MEDS: cloNIDine 0.1 mg tablet PO SCH ×2 (07:56→20:20)
[2021-06-15] MEDS: thiamine inj. 100 MG in normal saline 100ml IV soln 100 ML IV SCH (07:56)
[2021-06-15] MEDS: folic acid 1mg/0.2ml inj IV SCH (07:57)
[2021-06-15] MEDS ORDERED: folic acid inj. 2 MG, thiamine inj. 100 MG, MVI, adult No.4 with vit. K 10 ML in dextro... IV SCH ×4 (08:00)
[2021-06-15] MEDS ORDERED: pantoprazole 40mg Tablet.DR PO SCH (08:00)
[2021-06-15] MEDS: heparin, porcine 5000 units/ml vial SQ SCH ×2 (08:00→21:18)
[2021-06-15] MEDS: methylphenidate 5mg tablet PO SCH (09:18)
[2021-06-15 09:46] LABS: ALANINE AMINOTRANSFERASE 35 U/L (12-78); ALBUMIN 2.7 G/DL (3.4-5.0); ALBUMIN/GLOBULIN RATIO 0.9 (1.1-1.5); ALKALINE PHOSPHATASE 95 IU/L (46-116); ANION GAP 9 (8-16); ASPARTATE AMINO TRANSFERASE 68 U/L (10-37); BILIRUBIN,TOTAL 0.8 MG/DL (0.1-1.0); BLOOD UREA NITROGEN 11 MG/DL (7-18); BUN/CREATININE RATIO 17.5 (6.6-38.0); CALCIUM 7.5 MG/DL (8.5-10.1); CHLORIDE 95 MMOL/L (99-107); CREATININE 0.63 MG/DL (0.40-0.90); GLUCOSE 104 MG/DL (70-104); SODIUM 136 MMOL/L (135-145); TOTAL PROTEIN 5.8 G/DL (6.4-8.2); eGFR > 90 ML/MIN
[2021-06-15 09:55] LABS: POTASSIUM 2.6 MMOL/L (3.5-5.1)
--- NOTE | 2021-06-15 10:02 | NUR ---
Md Gallagher PAGER ID: [phone] MESSAGE: José FERRER Pt Catarina Kan 3014A . Potassium 2.6 Replacing per protocol
[2021-06-15 11:00] VITALS: BP 110/60
[2021-06-15 11:07] LABS: BASOPHILS % (AUTO) 0.4 % (0-1); EOSINOPHILS % (AUTO) 0.8 % (0-6); HEMATOCRIT 32.1 % (35.0-45.0); HEMOGLOBIN 11.1 g/dl (12.0-16.0); LYMPHOCYTES # (AUTO) 1.4 X10'3 (1.1-4.8); MEAN CORPUSCULAR HEMOGLOBIN 31.1 PG (27.0-31.0); MEAN CORPUSCULAR HGB CONC 34.6 g/dL (33.0-36.5); MEAN PLATELET VOLUME 9.5 FL (7.4-10.4); MONOCYTES # (AUTO) 0.5 X10'3 (0-0.9); MONOCYTES % (AUTO) 8.3 % (2-12); NEUTROPHILS # (AUTO) 3.9 X10'3 (1.8-7.7); NEUTROPHILS % (AUTO) 66.5 % (42-75); PLATELET COUNT 82 X10'3 (140-440); RED BLOOD COUNT 3.56 X10'6 (4.20-5.60); RED CELL DISTRIBUTION WIDTH 12.8 % (11.5-14.5)
[2021-06-15 11:09] LABS: WHITE BLOOD COUNT 5.9 X10'3 (4.5-11.0)
[2021-06-15] MEDS: LEVOMILNACIPRAN HYDROCHLORIDE 40 MG PO SCH (11:29)
[2021-06-15] MEDS: ETHIN ESTRA PO SCH (11:29)
[2021-06-15] MEDS: NORGEST ETH ESTR PO SCH (11:29)
--- NOTE | 2021-06-15 11:31 | NUR ---
Pt mom brought home medication's in taken to pharmacy and logged. First dose given to nurse by pharmacy and given.
--- NOTE | 2021-06-15 12:22 | NUR ---
MD Gallagher PAGER ID: [phone] MESSAGE: José NABIL Ext [phone] Pt Catarina Kan Rm 3018B ETOH withdrawal. CBC back. HGB down to 11.1 from 16.4 platelets down to 82 down from 154. wbc down to 5.9 from 14.2
[2021-06-15 15:00] VITALS: BP 105/53
[2021-06-15] MEDS: normal saline 1000ml 1,000 ML IV SCH ×2 (15:43→22:48)
--- NOTE | 2021-06-15 15:56 | NUR ---
telephone order MD Gallagher start protonix 40mg BID PO
[2021-06-15 18:00] VITALS: BP 102/63
--- NOTE | 2021-06-15 18:13 | NUR ---
Problems reprioritized. Patient report given, questions answered & plan of care reviewed with Brina Narayan.
--- NOTE | 2021-06-15 18:13 | NUR ---
Patient in room PCU 3014A. I have received report from ABENA Kumar and had the opportunity to ask questions and assume patient care.
--- NOTE | 2021-06-15 20:14 | NUR ---
PAGER ID: [phone] MESSAGE: [phone] ABENA Gonsalves in [facility] in [id number]. Patient PLT is low at 82. Still give subQ heparin? Thanks
[2021-06-15] MEDS: zolpidem 5mg tablet PO SCH (20:20)
[2021-06-15] MEDS: pantoprazole 40mg Tablet.DR PO SCH (20:20)
--- NOTE | 2021-06-15 20:30 | NUR ---
Patient refused blood sugar check saying "they poked me too much. I dont want it, I wanna sleep", Will attempt later
--- NOTE | 2021-06-15 21:18 | NUR ---
Night time Hospitalist notified, but did not respond to page. Did not administer 2000 dose of Heparin since Patient's PLT is 82. Will continue to monitor.
[2021-06-15 22:00] VITALS: BP 108/62
[2021-06-16] MEDS: LORazepam 2 mg/ml vial IV PRN ×6 (01:06→22:31)
[2021-06-16 02:00] VITALS: BP 112/61
[2021-06-16 06:00] VITALS: BP 136/76
--- NOTE | 2021-06-16 06:09 | NUR ---
Problems reprioritized. Patient report given, questions answered & plan of care reviewed with ABENA Kumar.
[2021-06-16 06:24] LABS: ALBUMIN 2.5 G/DL (3.4-5.0); ANION GAP 10 (8-16); BLOOD UREA NITROGEN 8 MG/DL (7-18); BUN/CREATININE RATIO 12.5 (6.6-38.0); CALCIUM 7.9 MG/DL (8.5-10.1); CHLORIDE 102 MMOL/L (99-107); CREATININE 0.64 MG/DL (0.40-0.90); GLUCOSE 96 MG/DL (70-104); PHOSPHORUS 1.9 MG/DL (2.3-4.5); POTASSIUM 3.2 MMOL/L (3.5-5.1); SODIUM 138 MMOL/L (135-145); eGFR > 90 ML/MIN
--- NOTE | 2021-06-16 06:51 | NUR ---
Patient in room PCU 3014. I have received report from Brina Narayan and had the opportunity to ask questions and assume patient care.
[2021-06-16 07:09] LABS: BASOPHILS % (AUTO) 0.7 % (0-1); EOSINOPHILS # (AUTO) 0.1 X10'3 (0-0.9); EOSINOPHILS % (AUTO) 2.7 % (0-6); HEMATOCRIT 29.3 % (35.0-45.0); LYMPHOCYTES # (AUTO) 1.6 X10'3 (1.1-4.8); LYMPHOCYTES % (AUTO) 35.7 % (21-51); MEAN CORPUSCULAR HEMOGLOBIN 30.7 PG (27.0-31.0); MEAN CORPUSCULAR HGB CONC 34.2 g/dL (33.0-36.5); MEAN CORPUSCULAR VOLUME 89.9 FL (78-98); MEAN PLATELET VOLUME 9.3 FL (7.4-10.4); MONOCYTES # (AUTO) 0.4 X10'3 (0-0.9); MONOCYTES % (AUTO) 8.3 % (2-12); NEUTROPHILS # (AUTO) 2.4 X10'3 (1.8-7.7); NEUTROPHILS % (AUTO) 52.6 % (42-75); PLATELET COUNT 83 X10'3 (140-440); RED BLOOD COUNT 3.26 X10'6 (4.20-5.60); RED CELL DISTRIBUTION WIDTH 13.1 % (11.5-14.5); WHITE BLOOD COUNT 4.6 X10'3 (4.5-11.0)
[2021-06-16] MEDS: heparin, porcine 5000 units/ml vial SQ SCH ×2 (08:00→19:49)
[2021-06-16] MEDS: pantoprazole 40mg Tablet.DR PO SCH ×2 (08:22→19:47)
[2021-06-16] MEDS: LEVOMILNACIPRAN HYDROCHLORIDE 40 MG PO SCH (08:22)
[2021-06-16] MEDS: cloNIDine 0.1 mg tablet PO SCH ×2 (08:22→19:48)
[2021-06-16] MEDS: folic acid 1mg/0.2ml inj IV SCH (08:22)
[2021-06-16] MEDS: NORGEST ETH ESTR PO SCH (08:22)
[2021-06-16] MEDS: ETHIN ESTRA PO SCH (08:22)
[2021-06-16] MEDS: gabapentin 100mg capsule PO SCH ×3 (08:22→19:48)
[2021-06-16] MEDS: thiamine inj. 100 MG in normal saline 100ml IV soln 100 ML IV SCH (08:22)
--- NOTE | 2021-06-16 08:52 | NUR ---
MD Gallagher notified of pt's CBC results QAM heparin held
[2021-06-16] MEDS: potassium Cl 20 mEq SR tablet PO PRN ×3 (09:09→20:01)
[2021-06-16] MEDS: methylphenidate 5mg tablet PO SCH (09:09)
[2021-06-16] MEDS ORDERED: diphenoxylate/atropine tablet (Lomotil) PO PRN (09:35)
--- NOTE | 2021-06-16 09:36 | NUR ---
MD Gallagher verbal order Stop normal saline, Start Lomotil 1 tab po Q6h PRN for diarrhea.
[2021-06-16 11:00] VITALS: BP 132/81
[2021-06-16 15:00] VITALS: BP 115/75
[2021-06-16 18:00] VITALS: BP 105/72
--- NOTE | 2021-06-16 18:38 | NUR ---
Problems reprioritized. Patient report given, questions answered & plan of care reviewed with Gloria Castro Rn.
--- NOTE | 2021-06-16 18:40 | NUR ---
Patient in room PCU 3014. I have received report from KAELYN KRAFT and had the opportunity to ask questions and assume patient care.
[2021-06-16] MEDS: zolpidem 5mg tablet PO SCH (19:47)
[2021-06-16 22:00] VITALS: BP 109/75
[2021-06-17] MEDS: LORazepam 2 mg/ml vial IV PRN ×5 (01:35→11:11)
[2021-06-17 02:00] VITALS: BP 112/68
[2021-06-17 06:00] VITALS: BP 114/75
--- NOTE | 2021-06-17 06:00 | NUR ---
Patient in room PCU 3014. I have received report from Shree KRAFT and had the opportunity to ask questions and assume patient care.
--- NOTE | 2021-06-17 06:29 | NUR ---
Problems reprioritized. Patient report given, questions answered & plan of care reviewed with ALPHONSE KRAFT.
[2021-06-17] MEDS: heparin, porcine 5000 units/ml vial SQ SCH (08:00)
[2021-06-17] MEDS: gabapentin 100mg capsule PO SCH (08:17)
[2021-06-17] MEDS: pantoprazole 40mg Tablet.DR PO SCH (08:17)
[2021-06-17] MEDS: LEVOMILNACIPRAN HYDROCHLORIDE 40 MG PO SCH (08:18)
[2021-06-17] MEDS: cloNIDine 0.1 mg tablet PO SCH (08:18)
[2021-06-17] MEDS: NORGEST ETH ESTR PO SCH (08:18)
[2021-06-17] MEDS: ETHIN ESTRA PO SCH (08:18)
[2021-06-17 08:19] LABS: BASOPHILS % (AUTO) 0.8 % (0-1); EOSINOPHILS # (AUTO) 0.2 X10'3 (0-0.9); EOSINOPHILS % (AUTO) 3.3 % (0-6); HEMOGLOBIN 11.2 g/dl (12.0-16.0); LYMPHOCYTES % (AUTO) 39.4 % (21-51); MEAN CORPUSCULAR HEMOGLOBIN 31.5 PG (27.0-31.0); MEAN CORPUSCULAR VOLUME 92.8 FL (78-98); MEAN PLATELET VOLUME 9.4 FL (7.4-10.4); MONOCYTES # (AUTO) 0.4 X10'3 (0-0.9); MONOCYTES % (AUTO) 7.8 % (2-12); NEUTROPHILS # (AUTO) 2.5 X10'3 (1.8-7.7); NEUTROPHILS % (AUTO) 48.7 % (42-75); PLATELET COUNT 122 X10'3 (140-440); RED BLOOD COUNT 3.55 X10'6 (4.20-5.60); RED CELL DISTRIBUTION WIDTH 13.4 % (11.5-14.5); WHITE BLOOD COUNT 5.1 X10'3 (4.5-11.0)
[2021-06-17] MEDS: methylphenidate 5mg tablet PO SCH (08:19)
[2021-06-17] MEDS: thiamine inj. 100 MG in normal saline 100ml IV soln 100 ML IV SCH (08:22)
[2021-06-17 09:00] LABS: ALBUMIN 2.6 G/DL (3.4-5.0); ANION GAP 8 (8-16); BLOOD UREA NITROGEN 3 MG/DL (7-18); BUN/CREATININE RATIO 5.2 (6.6-38.0); CHLORIDE 102 MMOL/L (99-107); CREATININE 0.58 MG/DL (0.40-0.90); GLUCOSE 94 MG/DL (70-104); PHOSPHORUS 2.2 MG/DL (2.3-4.5); POTASSIUM 3.3 MMOL/L (3.5-5.1); SODIUM 139 MMOL/L (135-145); TOTAL CARBON DIOXIDE 28.7 MMOL/L (24-32); eGFR > 90 ML/MIN
[2021-06-17] MEDS ORDERED: CHLO25CA10 PO (09:36)
[2021-06-17] MEDS: folic acid 1mg/0.2ml inj IV SCH (11:11)
--- NOTE | 2021-06-17 13:47 | NUR ---
Patient stable for discharge per Dr. Gallagher. DC'd PIV with cannula intact, DC'd telemery. Discussed discharge paperwork and medication regimen with patient and her mother, they both verbalized understanding. Patient with belonging was accompaied to the lobby by [facility] for transport home by her mother.
== END 2021-06-17 11:54 | disposition home or self-care (01) | DRG 773 ==
LOC: ER 08:36 → ED HOLD 16:32 → EDBEDREQ 21:51 → PCU 3S 22:30
PROVIDERS: ADMIT Family Medicine; ATTEND Family Medicine
DX: F10.239 Alcohol dependence with withdrawal, unspecified (principal); F11.90 Opioid use, unspecified, uncomplicated; F10.221 Alcohol dependence with intoxication delirium; E87.2 Acidosis; E87.1 Hypo-osmolality and hyponatremia; E87.6 Hypokalemia; F12.90 Cannabis use, unspecified, uncomplicated; F32.9 Major depressive disorder, single episode, unspecified; W18.39XA Other fall on same level, initial encounter; F41.9 Anxiety disorder, unspecified; I49.8 Other specified cardiac arrhythmias; R10.13 Epigastric pain; Y93.89 Activity, other specified; Y92.098 Other place in other non-institutional residence as the place of occurrence of the external cause; Y99.8 Other external cause status
CPT/HCPCS: 36415; 80048; 80053; 80305; 80320; 80329; 81001; 81025; 82948; 84100; 84443; 85025; 87081; 93005; 96365; 96366; 96375; 97161; 97530; 99285; G0378; J1644; J2060; J3411; J3475; J3490; J7030; J7042

== ENCOUNTER 2021-08-16 10:32 | Emergency (ER) | payer MEDICAID ==
[~2021-08-16] VITALS: Ht 170.2 cm; Wt 79.5 kg
[~2021-08-16 10:32] MED LIST changes: +CHLO25CA10 PO; -LORA-269 PO
[2021-08-16] MEDS ORDERED: normal saline 1000ML IV soln IVB ONE (11:20)
[2021-08-16 11:59] LABS: BASOPHILS % (AUTO) 0.2 % (0-1); EOSINOPHILS % (AUTO) 0 % (0-6); HEMATOCRIT 38.2 % (35.0-45.0); HEMOGLOBIN 12.8 g/dl (12.0-16.0); LYMPHOCYTES # (AUTO) 0.6 X10'3 (1.1-4.8); LYMPHOCYTES % (AUTO) 5.6 % (21-51); MEAN CORPUSCULAR HEMOGLOBIN 30.6 PG (27.0-31.0); MEAN CORPUSCULAR HGB CONC 33.6 g/dL (33.0-36.5); MEAN CORPUSCULAR VOLUME 91.2 FL (78-98); MEAN PLATELET VOLUME 8.1 FL (7.4-10.4); MONOCYTES # (AUTO) 0.7 X10'3 (0-0.9); NEUTROPHILS # (AUTO) 9.9 X10'3 (1.8-7.7); NEUTROPHILS % (AUTO) 88.2 % (42-75); PLATELET COUNT 224 X10'3 (140-440); RED BLOOD COUNT 4.19 X10'6 (4.20-5.60); RED CELL DISTRIBUTION WIDTH 14.6 % (11.5-14.5); WHITE BLOOD COUNT 11.2 X10'3 (4.5-11.0)
[2021-08-16 12:10] LABS: ALANINE AMINOTRANSFERASE 40 U/L (12-78); ALBUMIN 3.4 G/DL (3.4-5.0); ALBUMIN/GLOBULIN RATIO 0.8 (1.1-1.5); ALKALINE PHOSPHATASE 121 IU/L (46-116); ANION GAP 19 (8-16); ASPARTATE AMINO TRANSFERASE 53 U/L (10-37); BILIRUBIN,TOTAL 0.8 MG/DL (0.1-1.0); BLOOD UREA NITROGEN 19 MG/DL (7-18); BUN/CREATININE RATIO 25.7 (6.6-38.0); CALCIUM 8.2 MG/DL (8.5-10.1); CHLORIDE 85 MMOL/L (99-107); CREATININE 0.74 MG/DL (0.40-0.90); GLUCOSE 159 MG/DL (70-104); POTASSIUM 3.5 MMOL/L (3.5-5.1); SODIUM 126 MMOL/L (135-145); TOTAL CARBON DIOXIDE 21.6 MMOL/L (24-32); TOTAL PROTEIN 7.5 G/DL (6.4-8.2); eGFR 88 ML/MIN
[2021-08-16 12:14] LABS: ETHANOL 0.341 GM/DL (0.0-0.010)
[2021-08-16 14:00] VITALS: BP 148/90
--- NOTE | 2021-08-16 14:50 | NUR ---
PT ASKING ABOUT PHONE. STATING RN YISSEL HAS HER PHONE. PT WAS WITNESSED TO HAVE PHONE AT BEDSIDE. WILL ASK YISSEL WHEN HE RETURNS FROM BREAK.
[2021-08-17] MEDS ORDERED: FLUD0.1T PO (10:00)
[2021-08-17] MEDS ORDERED: METH20TA40 PO (10:15)
[2021-08-17] MEDS ORDERED: GABA300C PO (10:15)
== END 2021-08-16 20:57 | disposition home or self-care (01) ==
LOC: ER 10:32
DX: F10.920 Alcohol use, unspecified with intoxication, uncomplicated (principal); F41.9 Anxiety disorder, unspecified; F32.9 Major depressive disorder, single episode, unspecified; Y90.9 Presence of alcohol in blood, level not specified
CPT/HCPCS: 36415; 71045; 80053; 80320; 82948; 85025; 96360; 96361; 99284; J7030

== ENCOUNTER 2021-08-16 21:40 | Inpatient (IN) | payer MEDICAID ==
[~2021-08-16] VITALS: Ht 170.2 cm; Wt 82.0 kg
[2021-08-16] MEDS ORDERED: normal saline 1000ML IV soln IVB ONE (21:50)
[2021-08-16 22:26] LABS: BASOPHILS % (AUTO) 0.2 % (0-1); EOSINOPHILS % (AUTO) 0.1 % (0-6); HEMATOCRIT 33.9 % (35.0-45.0); HEMOGLOBIN 11.4 g/dl (12.0-16.0); LYMPHOCYTES % (AUTO) 8.8 % (21-51); MEAN CORPUSCULAR HEMOGLOBIN 30.7 PG (27.0-31.0); MEAN CORPUSCULAR HGB CONC 33.5 g/dL (33.0-36.5); MEAN CORPUSCULAR VOLUME 91.5 FL (78-98); MEAN PLATELET VOLUME 8.5 FL (7.4-10.4); MONOCYTES # (AUTO) 0.5 X10'3 (0-0.9); MONOCYTES % (AUTO) 4.2 % (2-12); NEUTROPHILS # (AUTO) 9.8 X10'3 (1.8-7.7); NEUTROPHILS % (AUTO) 86.7 % (42-75); PLATELET COUNT 184 X10'3 (140-440); RED CELL DISTRIBUTION WIDTH 14.6 % (11.5-14.5); WHITE BLOOD COUNT 11.3 X10'3 (4.5-11.0)
[2021-08-16] MEDS ORDERED: LORazepam 2 mg/ml vial IV ONE (22:30)
[2021-08-16 22:42] LABS: ALANINE AMINOTRANSFERASE 42 U/L (12-78); ALBUMIN 3.4 G/DL (3.4-5.0); ALKALINE PHOSPHATASE 110 IU/L (46-116); ANION GAP 21 (8-16); ASPARTATE AMINO TRANSFERASE 58 U/L (10-37); BILIRUBIN,TOTAL 1.2 MG/DL (0.1-1.0); BLOOD UREA NITROGEN 12 MG/DL (7-18); BUN/CREATININE RATIO 11.3 (6.6-38.0); CALCIUM 8.3 MG/DL (8.5-10.1); CHLORIDE 88 MMOL/L (99-107); CREATININE 1.06 MG/DL (0.40-0.90); ETHANOL < 0.010 GM/DL (0.0-0.010); GLUCOSE 133 MG/DL (70-104); POTASSIUM 3.1 MMOL/L (3.5-5.1); SODIUM 126 MMOL/L (135-145); TOTAL CARBON DIOXIDE 16.8 MMOL/L (24-32); TOTAL PROTEIN 6.8 G/DL (6.4-8.2); eGFR 58 ML/MIN
[2021-08-16] MEDS ORDERED: thiamine 100mg/ml 2ml inj. IV ONE (23:05)
[2021-08-16] MEDS ORDERED: folic acid 1mg/0.2ml inj IV ONE (23:05)
[2021-08-16] MEDS ORDERED: ringers solution, lactated 1000ml IV soln IV ONE (23:05)
[2021-08-16] MEDS ORDERED: potassium Cl 10 mEq/100mL bag IV ONE (23:10)
[2021-08-16] MEDS ORDERED: diazepam inj 5 MG/ML inj. IV ONE (23:25)
[2021-08-17 01:22] LABS: CLARITY,URINE CLEAR (Clear); COLOR,URINE STRAW (Yellow); GLUCOSE, URINE NEGATIVE (Neg); KETONES,URINE 40 mg/dl (Neg); LEUKOCYTE ESTERASE ,URINE NEGATIVE (Neg); NITRITES, URINE NEGATIVE (Neg); OCCULT BLOOD,URINE TRACE-LYSED (Neg); PROTEIN,URINE NEGATIVE (Neg); UA COLLECTION TYPE STRAIGHT CATH; UROBILINOGEN,URINE 0.2 E.U/dL (0.2-1.0)
[2021-08-17 01:32] LABS: MUCUS STRANDS FEW /LPF (Neg); SQUAMOUS EPITHELIAL CELL,UR FEW /LPF (FEW)
[2021-08-17 01:33] LABS: FINE GRANULAR CAST 0-3 /LPF (NEGATIVE); HYALINE CASTS 0-3 /LPF (NEGATIVE)
[2021-08-17 01:34] LABS: RBC,URINE 0-2 /HPF (0-2); WBC,URINE 0-4 /HPF (0-4)
[2021-08-17 01:35] LABS: BACTERIA,URINE FEW /HPF (Neg)
[2021-08-17] MEDS ORDERED: diazepam inj 5 MG/ML inj. IV ONE (01:40)
[2021-08-17 01:49] LABS: URINE AMPHETAMINE SCREEN NEGATIVE (Neg); URINE BARBITUATE SCREEN NEGATIVE (Neg); URINE BENZODIAZEPINES SCREEN NEGATIVE (Neg); URINE CANNABINOID SCREEN NEGATIVE (Neg); URINE COCAINE SCREEN NEGATIVE (Neg); URINE METHADONE SCREEN NEGATIVE (Neg); URINE OPIATE SCREEN NEGATIVE (Neg); URINE PHENCYCLIDINE SCREEN NEGATIVE (Neg)
[2021-08-17] MEDS ORDERED: gabapentin 400mg capsule PO STA (04:26)
[2021-08-17] MEDS ORDERED: haloperidol lactate 5mg/ml inj IM PRN ×2 (04:40→04:50)
[2021-08-17] MEDS ORDERED: thiamine inj. 100 MG in normal saline 100ml IV soln 100 ML IV ONE ×2 (04:40→04:50)
[2021-08-17] MEDS ORDERED: LORazepam 2 mg/ml vial IV PRN ×4 (04:40→04:50)
[2021-08-17] MEDS ORDERED: haloperidol 5mg tablet PO PRN (04:40)
[2021-08-17] MEDS ORDERED: dextrose 50%-water 50ml dispensing syringe IV PRN ×2 (04:50→05:50)
[2021-08-17] MEDS ORDERED: folic acid 1mg/0.2ml inj IV ONE (04:55)
[2021-08-17] MEDS ORDERED: thiamine 100mg/ml 2ml inj. IV ONE ×2 (04:55→05:50)
[2021-08-17 05:05] LABS: ALANINE AMINOTRANSFERASE 37 U/L (12-78); ALBUMIN 2.9 G/DL (3.4-5.0); ALBUMIN/GLOBULIN RATIO 0.9 (1.1-1.5); ALKALINE PHOSPHATASE 102 IU/L (46-116); ANION GAP 10 (8-16); ASPARTATE AMINO TRANSFERASE 47 U/L (10-37); BILIRUBIN,TOTAL 1.3 MG/DL (0.1-1.0); BLOOD UREA NITROGEN 8 MG/DL (7-18); BUN/CREATININE RATIO 11.4 (6.6-38.0); CALCIUM 8.2 MG/DL (8.5-10.1); CHLORIDE 98 MMOL/L (99-107); GLUCOSE 104 MG/DL (70-104); SODIUM 136 MMOL/L (135-145); TOTAL CARBON DIOXIDE 28.5 MMOL/L (24-32); TOTAL PROTEIN 6.3 G/DL (6.4-8.2); eGFR > 90 ML/MIN
[2021-08-17] MEDS ORDERED: phenobarbital inj 130 MG in normal saline 100ml IV soln 99 ML IV STA (05:09)
[2021-08-17 05:11] LABS: POTASSIUM 2.9 MMOL/L (3.5-5.1)
[2021-08-17] MEDS ORDERED: POTASSIUM BICARB 20meq eff tab 20 MEQ TABLET.EFF PO ONE (05:15)
[2021-08-17] MEDS ORDERED: potassium Cl 10 mEq/100mL bag IV ONE (05:20)
[2021-08-17] MEDS ORDERED: ondansetron/PF 4mg/2ml inj IV ONE (05:20)
[2021-08-17] MEDS ORDERED: mag hydrox/Alum hydrox/simeth 30ml oral suspension PO PRN ×2 (05:50)
[2021-08-17] MEDS ORDERED: cyclobenzaprine 10mg tablet PO PRN (05:50)
[2021-08-17] MEDS ORDERED: cloNIDine 0.1 mg tablet PO PRN (05:50)
[2021-08-17] MEDS ORDERED: morphine 2 MG/ML inj. syringe IV PRN ×2 (05:50)
[2021-08-17] MEDS ORDERED: ondansetron/PF 4mg/2ml inj IV PRN (05:50)
[2021-08-17] MEDS ORDERED: acetaminophen 325mg tablet PO PRN ×2 (05:50)
[2021-08-17] MEDS ORDERED: loperamide 2mg capsule PO PRN ×2 (05:50)
[2021-08-17] MEDS ORDERED: magnesium hydroxide 30ml (MOM) UD suspension PO PRN (05:50)
[2021-08-17] MEDS ORDERED: dicyclomine 10 MG capsule PO PRN (05:50)
[2021-08-17] MEDS ORDERED: HYDROcodone/acetaminophen 5mg/325mg tablet PO PRN (05:50)
[2021-08-17] MEDS ORDERED: HYDROcodone/acetaminophen 10/325mg tab PO PRN (05:50)
[2021-08-17] MEDS ORDERED: magnesium 4gm in 100ml NS 100 ML IV PRN (06:00)
[2021-08-17] MEDS ORDERED: magnesium Cl slow-release 64mg tablet PO PRN (06:00)
[2021-08-17] MEDS ORDERED: potassium Cl 40MEQ/1/2NS 520ml 520 ML IV PRN (06:00)
[2021-08-17 07:26] LABS: MAGNESIUM 1.8 MG/DL (1.5-2.4); PHOSPHORUS 1.3 MG/DL (2.3-4.5)
[2021-08-17] MEDS ORDERED: folic acid inj. 2 MG, thiamine inj. 100 MG, MVI, adult No.4 with vit. K 10 ML in dextro... IV SCH ×12 (08:00)
[2021-08-17] MEDS: docusate sod 100mg capsule PO SCH ×2 (08:00→20:00)
[2021-08-17] MEDS ORDERED: multivitamins, therapeutics tablet PO SCH (08:00)
[2021-08-17] MEDS: K and/or MAG REPLACEMENT MC SCH ×2 (08:00→20:00)
[2021-08-17] MEDS: multivitamins, therapeutics tablet PO SCH (08:00)
[2021-08-17] MEDS ORDERED: thiamine 100mg tablet PO SCH (08:00)
[2021-08-17] MEDS ORDERED: folic acid 1mg tablet PO SCH (08:00)
--- NOTE | 2021-08-17 08:34 | NUR ---
PATIENT'S MOTHER CALLED IN FOR CONDITION REPORT. MOTHER IS INQUIRING ABOUT INPATIENT DETOX/REHAB PROGRAM FOR 1-3 MONTHS FOR THE PATIENT. MOTHER INFORMED THAT DC LINING CASER/MONOMER RECOVERY SUPERVISOR MAY BE ABLE TO HELP THE PATIENT DECIDE THE NEXT STEPS PRIOR TO DISCHARGE.
[2021-08-17] MEDS ORDERED: FLUD0.1T PO (10:00)
[2021-08-17] MEDS: potassium Cl 20 mEq SR tablet PO PRN ×2 (10:04→20:17)
[2021-08-17] MEDS ORDERED: GABA300C PO (10:15)
[2021-08-17] MEDS ORDERED: METH20TA40 PO (10:15)
[2021-08-17] MEDS: LORazepam 2 mg/ml vial IV PRN ×3 (11:38→18:51)
--- NOTE | 2021-08-17 12:10 | NUR ---
Pt awakes to speech. Follows commands. Denies pain. She is calm. Provider is aware of tachycardia.
[2021-08-18 03:55] LABS: BASOPHILS % (AUTO) 0.6 % (0-1); EOSINOPHILS % (AUTO) 0.7 % (0-6); HEMATOCRIT 33.6 % (35.0-45.0); HEMOGLOBIN 11.6 g/dl (12.0-16.0); LYMPHOCYTES # (AUTO) 1.9 X10'3 (1.1-4.8); MEAN CORPUSCULAR HEMOGLOBIN 31.2 PG (27.0-31.0); MEAN CORPUSCULAR HGB CONC 34.4 g/dL (33.0-36.5); MEAN CORPUSCULAR VOLUME 90.9 FL (78-98); MONOCYTES # (AUTO) 0.4 X10'3 (0-0.9); MONOCYTES % (AUTO) 5.3 % (2-12); NEUTROPHILS # (AUTO) 4.7 X10'3 (1.8-7.7); NEUTROPHILS % (AUTO) 66.4 % (42-75); PLATELET COUNT 140 X10'3 (140-440); RED CELL DISTRIBUTION WIDTH 14.3 % (11.5-14.5); WHITE BLOOD COUNT 7.1 X10'3 (4.5-11.0)
[2021-08-18 04:08] LABS: ALANINE AMINOTRANSFERASE 46 U/L (12-78); ALBUMIN 3.3 G/DL (3.4-5.0); ALBUMIN/GLOBULIN RATIO 0.9 (1.1-1.5); ALKALINE PHOSPHATASE 108 IU/L (46-116); AMYLASE 23 U/L (25-115); ANION GAP 12 (8-16); ASPARTATE AMINO TRANSFERASE 64 U/L (10-37); BILIRUBIN,TOTAL 0.8 MG/DL (0.1-1.0); BLOOD UREA NITROGEN 5 MG/DL (7-18); BUN/CREATININE RATIO 6.8 (6.6-38.0); CALCIUM 8.9 MG/DL (8.5-10.1); CHLORIDE 98 MMOL/L (99-107); CREATININE 0.73 MG/DL (0.40-0.90); GLUCOSE 88 MG/DL (70-104); LIPASE 169 U/L (73-393); MAGNESIUM 1.9 MG/DL (1.5-2.4); PHOSPHORUS 1.7 MG/DL (2.3-4.5); POTASSIUM 3.3 MMOL/L (3.5-5.1); SODIUM 137 MMOL/L (135-145); TOTAL CARBON DIOXIDE 27.2 MMOL/L (24-32); eGFR 89 ML/MIN
[2021-08-18] MEDS: K and/or MAG REPLACEMENT MC SCH ×2 (08:00→21:00)
[2021-08-18] MEDS: docusate sod 100mg capsule PO SCH ×2 (08:00→20:04)
[2021-08-18] MEDS ORDERED: thiamine inj. 100 MG in normal saline 100ml IV soln 100 ML IV SCH (08:00)
[2021-08-18] MEDS ORDERED: folic acid 1mg/0.2ml inj IV SCH (08:00)
[2021-08-18] MEDS: potassium Cl 20 mEq SR tablet PO PRN ×2 (08:38→23:06)
[2021-08-18] MEDS: folic acid 1mg tablet PO SCH (08:38)
[2021-08-18] MEDS: multivitamins, therapeutics tablet PO SCH (08:38)
[2021-08-18] MEDS: thiamine 100mg tablet PO SCH (08:47)
[2021-08-18] MEDS: LORazepam 2 mg/ml vial IV PRN ×5 (08:48→23:31)
--- NOTE | 2021-08-18 09:57 | NUR ---
social service at bedside.
[2021-08-18] MEDS: gabapentin 300mg capsule PO SCH ×2 (12:34→23:06)
[2021-08-18] MEDS: haloperidol lactate 5mg/ml inj IM PRN (13:25)
--- NOTE | 2021-08-18 14:32 | NUR ---
[phone] hicks akil mother need information regarding pt ,informed that can't release pt information ,will call if pt give consent rgt now pt is sleeping.
--- NOTE | 2021-08-18 15:48 | NUR ---
spoke to dr portillo regarding pt vitals sign informed that pt hr is 122 and eariler went up to 130's if he consider iv fluids as pt is not drinking enough as per infuse n.s at 150 ml/hr.
[2021-08-18] MEDS: normal saline 1000ml 1,000 ML IV SCH ×2 (16:00→23:19)
[2021-08-18 18:00] VITALS: BP 132/86
[2021-08-18] MEDS: cloNIDine 0.1 mg tablet PO SCH (20:03)
--- NOTE | 2021-08-18 20:56 | NUR ---
Patient in room PCU 3027. I have received report from CHE KRAFT and had the opportunity to ask questions and assume patient care.
[2021-08-18 22:00] VITALS: BP 122/76
[2021-08-19 02:00] VITALS: BP 127/66
[2021-08-19] MEDS ORDERED: LORazepam 2 mg/ml vial IV PRN ×3 (04:40→14:20)
[2021-08-19] MEDS: LORazepam 2 mg/ml vial IV PRN ×6 (04:59→19:35)
[2021-08-19] MEDS: normal saline 1000ml 1,000 ML IV SCH ×3 (05:06→19:36)
[2021-08-19 06:00] VITALS: BP 132/69
[2021-08-19 06:11] LABS: BASOPHILS % (AUTO) 0.5 % (0-1); EOSINOPHILS # (AUTO) 0.2 X10'3 (0-0.9); EOSINOPHILS % (AUTO) 2.5 % (0-6); HEMATOCRIT 35.1 % (35.0-45.0); HEMOGLOBIN 11.8 g/dl (12.0-16.0); LYMPHOCYTES # (AUTO) 1.9 X10'3 (1.1-4.8); LYMPHOCYTES % (AUTO) 24.3 % (21-51); MEAN CORPUSCULAR HEMOGLOBIN 30.9 PG (27.0-31.0); MEAN CORPUSCULAR HGB CONC 33.5 g/dL (33.0-36.5); MEAN CORPUSCULAR VOLUME 92.2 FL (78-98); MEAN PLATELET VOLUME 8.6 FL (7.4-10.4); MONOCYTES # (AUTO) 0.4 X10'3 (0-0.9); MONOCYTES % (AUTO) 5.5 % (2-12); NEUTROPHILS # (AUTO) 5.2 X10'3 (1.8-7.7); NEUTROPHILS % (AUTO) 67.2 % (42-75); PLATELET COUNT 166 X10'3 (140-440); RED BLOOD COUNT 3.81 X10'6 (4.20-5.60); RED CELL DISTRIBUTION WIDTH 14.3 % (11.5-14.5); WHITE BLOOD COUNT 7.7 X10'3 (4.5-11.0)
[2021-08-19 06:27] LABS: ALANINE AMINOTRANSFERASE 64 U/L (12-78); ALBUMIN 3.2 G/DL (3.4-5.0); ALBUMIN/GLOBULIN RATIO 0.8 (1.1-1.5); ALKALINE PHOSPHATASE 111 IU/L (46-116); AMYLASE 19 U/L (25-115); ANION GAP 11 (8-16); ASPARTATE AMINO TRANSFERASE 70 U/L (10-37); BILIRUBIN,TOTAL 0.7 MG/DL (0.1-1.0); BLOOD UREA NITROGEN 9 MG/DL (7-18); BUN/CREATININE RATIO 12.9 (6.6-38.0); CALCIUM 8.7 MG/DL (8.5-10.1); CHLORIDE 101 MMOL/L (99-107); GLUCOSE 91 MG/DL (70-104); LIPASE 283 U/L (73-393); MAGNESIUM 1.9 MG/DL (1.5-2.4); PHOSPHORUS 2.6 MG/DL (2.3-4.5); POTASSIUM 3.2 MMOL/L (3.5-5.1); SODIUM 138 MMOL/L (135-145); TOTAL CARBON DIOXIDE 26.4 MMOL/L (24-32); TOTAL PROTEIN 7.1 G/DL (6.4-8.2); eGFR > 90 ML/MIN
--- NOTE | 2021-08-19 06:30 | NUR ---
Problems reprioritized. Patient report given, questions answered & plan of care reviewed with YAZMIN KRAFT.
[2021-08-19] MEDS: docusate sod 100mg capsule PO SCH ×3 (08:00→20:00)
[2021-08-19] MEDS: K and/or MAG REPLACEMENT MC SCH ×2 (08:00→20:25)
[2021-08-19] MEDS ORDERED: LEVOMILNACIPRAN HYDROCHLORIDE 40 MG PO SCH (08:00)
[2021-08-19] MEDS: multivitamins, therapeutics tablet PO SCH (09:29)
[2021-08-19] MEDS: thiamine 100mg tablet PO SCH (09:29)
[2021-08-19] MEDS: potassium Cl 20 mEq SR tablet PO PRN ×4 (09:30→22:05)
[2021-08-19] MEDS: gabapentin 300mg capsule PO SCH ×3 (09:30→22:05)
[2021-08-19] MEDS: pantoprazole 40mg Tablet.DR PO SCH (09:30)
[2021-08-19] MEDS: cloNIDine 0.1 mg tablet PO SCH ×2 (09:30→19:34)
[2021-08-19] MEDS: folic acid 1mg tablet PO SCH (09:30)
[2021-08-19] MEDS ORDERED: ATI1T PO (10:13)
[2021-08-19] MEDS ORDERED: POTA20TA19 PO (10:13)
--- NOTE | 2021-08-19 10:19 | NUR ---
I agree with RN physical assessment
[2021-08-19 11:00] VITALS: BP 138/86
--- NOTE | 2021-08-19 14:27 | NUR ---
Paged Dr. Alba regarding heart rate. PAGER ID: [phone] MESSAGE: [id number] Catarina Kan. Heart rate 130s. Gave 2mg Ativan 40 mins ago, gonna give 2 more mg. PCVasquez Crystal
--- NOTE | 2021-08-19 14:29 | NUR ---
Dr. Alba says give 4mg ativan.
[2021-08-19 15:00] VITALS: BP 113/73
--- NOTE | 2021-08-19 18:38 | NUR ---
Problems reprioritized. Patient report given, questions answered & plan of care reviewed with Jennifer KRAFT. Patient stable at transfer of care.
--- NOTE | 2021-08-19 18:39 | NUR ---
Patient in room PCU 3021E. I have received report from ABENA Gandhi and had the opportunity to ask questions and assume patient care.
[2021-08-19 19:00] VITALS: BP 141/89
[2021-08-19] MEDS ORDERED: chlordiazePOXIDE 25mg capsule PO SCH (21:00)
[2021-08-19] MEDS ORDERED: chlordiazePOXIDE 5mg capsule PO SCH (21:27)
[2021-08-19 23:00] VITALS: BP 107/74
[2021-08-20] MEDS: normal saline 1000ml 1,000 ML IV SCH ×2 (01:10→09:04)
[2021-08-20] MEDS: LORazepam 2 mg/ml vial IV PRN ×5 (02:21→09:04)
[2021-08-20 03:00] VITALS: BP 128/95
[2021-08-20] MEDS: potassium Cl 20 mEq SR tablet PO PRN (04:40)
[2021-08-20 06:00] VITALS: BP 123/76
--- NOTE | 2021-08-20 06:31 | NUR ---
Problems reprioritized. Patient report given, questions answered & plan of care reviewed with ABENA Rocha.
[2021-08-20 06:49] LABS: BASOPHILS % (AUTO) 0.8 % (0-1); EOSINOPHILS # (AUTO) 0.2 X10'3 (0-0.9); EOSINOPHILS % (AUTO) 4.6 % (0-6); HEMATOCRIT 34.5 % (35.0-45.0); HEMOGLOBIN 11.7 g/dl (12.0-16.0); LYMPHOCYTES # (AUTO) 1.8 X10'3 (1.1-4.8); LYMPHOCYTES % (AUTO) 36.1 % (21-51); MEAN CORPUSCULAR HEMOGLOBIN 31.4 PG (27.0-31.0); MEAN CORPUSCULAR VOLUME 92.5 FL (78-98); MONOCYTES # (AUTO) 0.5 X10'3 (0-0.9); MONOCYTES % (AUTO) 10.4 % (2-12); NEUTROPHILS # (AUTO) 2.4 X10'3 (1.8-7.7); NEUTROPHILS % (AUTO) 48.1 % (42-75); PLATELET COUNT 212 X10'3 (140-440); RED BLOOD COUNT 3.73 X10'6 (4.20-5.60); RED CELL DISTRIBUTION WIDTH 14.4 % (11.5-14.5); WHITE BLOOD COUNT 5.1 X10'3 (4.5-11.0)
[2021-08-20 07:18] LABS: ALANINE AMINOTRANSFERASE 77 U/L (12-78); ALBUMIN 3.3 G/DL (3.4-5.0); ALBUMIN/GLOBULIN RATIO 0.9 (1.1-1.5); ALKALINE PHOSPHATASE 104 IU/L (46-116); AMYLASE 18 U/L (25-115); ANION GAP 11 (8-16); ASPARTATE AMINO TRANSFERASE 73 U/L (10-37); BILIRUBIN,TOTAL 0.4 MG/DL (0.1-1.0); BLOOD UREA NITROGEN 3 MG/DL (7-18); CALCIUM 9.2 MG/DL (8.5-10.1); CHLORIDE 104 MMOL/L (99-107); CREATININE 0.75 MG/DL (0.40-0.90); GLUCOSE 103 MG/DL (70-104); LIPASE 252 U/L (73-393); PHOSPHORUS 3.2 MG/DL (2.3-4.5); POTASSIUM 3.5 MMOL/L (3.5-5.1); SODIUM 138 MMOL/L (135-145); TOTAL CARBON DIOXIDE 23.4 MMOL/L (24-32); TOTAL PROTEIN 6.8 G/DL (6.4-8.2); eGFR 86 ML/MIN
[2021-08-20] MEDS: folic acid 1mg tablet PO SCH (07:35)
[2021-08-20] MEDS: thiamine 100mg tablet PO SCH (07:35)
[2021-08-20] MEDS: multivitamins, therapeutics tablet PO SCH (07:35)
[2021-08-20] MEDS: pantoprazole 40mg Tablet.DR PO SCH (07:35)
[2021-08-20] MEDS: cloNIDine 0.1 mg tablet PO SCH (07:35)
[2021-08-20] MEDS: gabapentin 300mg capsule PO SCH (07:35)
[2021-08-20] MEDS: docusate sod 100mg capsule PO SCH (08:00)
[2021-08-20] MEDS ORDERED: potassium Cl 40MEQ/1/2NS 520ml 520 ML IV PRN (09:55)
[2021-08-20] MEDS ORDERED: potassium Cl 20 mEq SR tablet PO PRN ×2 (09:55)
[2021-08-20] MEDS ORDERED: magnesium Cl slow-release 64mg tablet PO PRN (09:55)
[2021-08-20] MEDS ORDERED: magnesium 4gm in 100ml NS 100 ML IV PRN (09:55)
--- NOTE | 2021-08-20 10:27 | NUR ---
PAGER ID: [phone] MESSAGE: [id number] Lucius- States wants to go home today. Ariadne [phone]
[2021-08-20] MEDS: haloperidol lactate 5mg/ml inj IM PRN (10:34)
[2021-08-20] MEDS ORDERED: LORA-269 PO (10:45)
--- NOTE | 2021-08-20 11:00 | NUR ---
Patient states she wants to go home today. Physician made aware and states okay for discharge. Discharge instructions give to patient. Patient verbalized understanding. PIV removed with catheter intact. Tele removed. All possessions with patient. Patient transferred off unit via wheelchair to mother's car.
[2021-08-21] MEDS ORDERED: LORazepam 1 MG tablet PO PRN (04:40)
== END 2021-08-20 11:37 | disposition home or self-care (01) | DRG 53 ==
LOC: ER 21:40 → ED HOLD 08-17 05:54 → PCU 3S 08-18 19:10
PROVIDERS: ADMIT Internal Medicine; ATTEND Family Medicine
DX: G40.89 Other seizures (principal); J96.21 Acute and chronic respiratory failure with hypoxia; F10.231 Alcohol dependence with withdrawal delirium; E87.1 Hypo-osmolality and hyponatremia; D72.829 Elevated white blood cell count, unspecified; S00.83XA Contusion of other part of head, initial encounter; E87.6 Hypokalemia; F10.239 Alcohol dependence with withdrawal, unspecified; W08.XXXA Fall from other furniture, initial encounter; I10 Essential (primary) hypertension; S00.81XA Abrasion of other part of head, initial encounter; J96.22 Acute and chronic respiratory failure with hypercapnia; S00.31XA Abrasion of nose, initial encounter; F32.A Depression, unspecified; F41.9 Anxiety disorder, unspecified; K21.9 Gastro-esophageal reflux disease without esophagitis; R00.0 Tachycardia, unspecified; Y93.89 Activity, other specified; Y92.89 Other specified places as the place of occurrence of the external cause; Y99.8 Other external cause status; Z79.899 Other long term (current) drug therapy
CPT/HCPCS: 36415; 70450; 71045; 72125; 80053; 80305; 80320; 81001; 82150; 82948; 83690; 83735; 84100; 85025; 85610; 87081; 93005; 99285; G0378; J1630; J2060; J2405; J2560; J3360; J3411; J3480; J3490; J7030; J7120